=== PATIENT | female | born 1980 | race Caucasian/White ===

== ENCOUNTER 2017-07-13 19:27 | Emergency (ER) | payer MEDICAID ==
[~2017-07-13] VITALS: Ht 147.3 cm; Wt 88.5 kg
[2017-07-13 19:38] VITALS: Ht 147.3 cm; Wt 88.5 kg
[2017-07-13] MEDS ORDERED: HYDROmorphONE 1 MG/ML SYG IV STA (23:02)
[2017-07-13] MEDS ORDERED: SOD CHLORIDE 0.9% 1,000 ML IV STA (23:02)
[2017-07-13] MEDS ORDERED: ONDANSETRON 4 MG INJ IV STA (23:02)
[2017-07-13 23:22] LABS: BASOPHILS % 0.3 % (0.0-2.0); EOSINOPHILS # 0.1 10^3/ul (0.0-0.5); EOSINOPHILS % 1.9 % (0.0-7.0); HEMATOCRIT 37.1 % (37.0-47.0); HEMOGLOBIN 11.8 g/dl (12.0-16.0); LYMPHOCYTES # 2.4 10^3/ul (0.8-2.9); LYMPHOCYTES % 42.1 % (15.0-51.0); MEAN CORPUSCULAR HEMOGLOBIN 26.3 pg (29.0-33.0); MEAN CORPUSCULAR HGB CONC 31.8 g/dl (32.0-37.0); MEAN CORPUSCULAR VOLUME 82.6 fl (82.0-101.0); MEAN PLATELET VOLUME 11.3 fl (7.4-10.4); MONOCYTE # 0.4 10^3/ul (0.3-0.9); MONOCYTES % 7.5 % (0.0-11.0); NEUTROPHIL # 2.8 10^3/ul (1.6-7.5); NEUTROPHILS % 48.2 % (39.0-77.0); PLATELET COUNT 304 10^3/UL (140-415); RED BLOOD COUNT 4.49 10^6/ul (4.20-5.40); WHITE BLOOD COUNT 5.7 10^3/ul (4.8-10.8)
[2017-07-13 23:49] LABS: ALBUMIN 4.4 g/dl (3.3-4.9); ALBUMIN/GLOBULIN RATIO 1.04; BILIRUBIN,INDIRECT 0.2 mg/dl (0-1.1); BILIRUBIN,TOTAL 0.2 mg/dl (0.2-1.3); CALCIUM 9.9 mg/dl (8.4-10.2); CREATININE 0.71 mg/dl (0.44-1.00); POTASSIUM 4.1 mmol/L (3.5-5.1); TOTAL PROTEIN 8.6 g/dl (6.1-8.1)
[2017-07-14 00:01] LABS: ADD UMIC YES; UR ASCORBIC ACID NEGATIVE (NEGATIVE); UR BACTERIA FEW /HPF (NONE SEEN); UR BILIRUBIN (Dip) NEGATIVE (NEGATIVE); UR BLOOD (Dip) NEGATIVE (NEGATIVE); UR CLARITY CLOUDY (CLEAR); UR COLOR YELLOW (YELLOW); UR GLUCOSE (Dip) NEGATIVE (NEGATIVE); UR KETONES (Dip) NEGATIVE (NEGATIVE); UR LEUKOCYTE ESTERASE (Dip) 3+ Leu/ul (NEGATIVE); UR MUCUS FEW /HPF (NONE SEEN); UR NITRITE (Dip) NEGATIVE (NEGATIVE); UR RBC 5 /HPF (0-5); UR SPECIFIC GRAVITY (Dip) 1.026 (1.003-1.030); UR SQUAMOUS EPITHELIAL CELL MANY /HPF (FEW); UR TOTAL PROTEIN (Dip) NEGATIVE (NEGATIVE); UR UROBILINOGEN (Dip) 1+ mg/dL (NEGATIVE)
[2017-07-14] MEDS ORDERED: HYDROmorphONE 1 MG/ML SYG IV STA (00:10)
[2017-07-14] MEDS ORDERED: ONDANSETRON 4 MG INJ IV STA (00:10)
--- NOTE | 2017-07-14 00:29 | RADRPT ---
PROCEDURE: CT abdomen and pelvis without intravenous contrast. CLINICAL INDICATION: Pain. TECHNIQUE: CT of the abdomen/pelvis was performed utilizing axial images with reconstructions in s agittal and coronal planes. The administered radiation dose is CTDI 21.4 mGy, DLP 1261 mGy-cm. One o r more of the following dose reduction techniques were used: automated exposure control, adjustment of the mA and/or kV according to patient size and/or use of iterative reconstruction technique. COMPARISON: No pertinent prior examinations were submitted for comparison. FINDINGS: Visualized Chest: The visualized lung bases are clear. Abdomen: The liver, spleen, pancreas, and adrenal glands are unremarkable. The liver is diffusely decreased in attenuation, compatible with hepatic steatosis. Prior cholecystectomy is noted. The kidneys are without hydronephrosis. A 10 to 6-mm nonobstructive calculus is noted within the lo wer pole of the right kidney. There is no evidence of bowel obstruction. The appendix is normal. No intra-abdominal free air is seen. There is no evidence of intra-abdominal adenopathy or free fluid. There is a para sized ventral abd ominal hernia contains fat. Pelvis: There is no evidence of pelvic adenopathy. The uterus and ovaries are without enlargement. The uri nary bladder is unremarkable. There is no pelvic free fluid. Osseous structures: Unremarkable. IMPRESSION: No acute findings. Hepatic steatosis. Right nephrolithiasis. Small to moderate fat containing ventral abdominal hernia. RPTAT: HIKT .Carmelo Prince MD, Date Time Electronically viewed and signed by .Carmelo Prince MD, on 07/14/2017 00:29 .T/
--- NOTE | 2017-07-14 00:36 | ERD ---
ER Documentation Chief Complaint Date/Time DATE: 07/14/17 TIME: 00:33 Chief Complaint BILATERAL FLANK PAIN HISTORY OF STONES, +HEMATURIA/DYSURIA, 07/05 PX HPI This is a 36-year-old female with a history of kidney stones bilaterally. The patient states she is having bilateral flank pain with hematuria 1-2 days. She says this pain is exactly like her prior kidney stones. Pain is sharp nothing seems to make it worse or better. She has had no fever. Pain radiates from the bilateral flank to the mid abdomen bilateral. She has nausea but no vomiting. She does have some diarrhea she states.. Denies any fever no chest pain or shortness of breath ROS All systems reviewed and are negative except as per history of present illness. Allergies Allergies: Coded Allergies: No Known Allergy (Unverified Allergy, Unknown, 05/11/08) PMhx/Soc History of Surgery: Yes (, CHOLECYSTECTOMY) Anesthesia Reaction: No Hx Neurological Disorder: No Hx Respiratory Disorders: No Hx Cardiac Disorders: No Hx Psychiatric Problems: No Hx Miscellaneous Medical Probl: Yes (KIDNEY STONES) Hx Alcohol Use: No Hx Substance Use: No Hx Tobacco Use: No Smoking Status: Never smoker FmHx Family History: No coronary disease Physical Exam Vitals Vital Signs Date Time Temp Pulse Resp B/P Pulse Ox O2 Delivery O2 Flow Rate FiO2 07/13/17 23:00 99.0 98 20 126/79 99 Room Air 07/13/17 19:38 99.0 98 23 147/75 98 Physical Exam Const: Well-developed, well-nourished Head: Atraumatic, normocephalic Eyes: Normal Conjunctiva, PERRLA, EOMI, normal sclera, no nystagmus ENT: Normal External Ears, Nose and Mouth, moist mucus membranes. Neck: Full range of motion. No meningismus, no lymphadenopathy. Resp: Clear to auscultation bilaterally, no wheezing, rhonchi, rales Cardio: Regular rate and rhythm, no murmurs, S1 S2 present Abd: Soft, non tender x 4, non distended. Normal bowel sounds, no guarding or rebound, no pulsitile abdominal masses or bruits Skin: No petechiae or rashes, no ecchymosis , no maculopapular rash Back: [Bilateral flank tenderness right greater than left Ext: No cyanosis, or edema, FROM x 4, normal inspection, neurovascularly intact x 4 Neur: Awake and alert, STR 5/5 x 4, sensation intact x 4, no focal findings, cerebellum intact Psych: Normal Mood and Affect Result Diagram: 07/13/17229907/13/172299 Results 24 hrs Laboratory Tests Test 07/13/17 23:00 White Blood Count 5.710^3/ul Red Blood Count 4.4910^6/ul Hemoglobin 11.8g/dl Hematocrit 37.1% Mean Corpuscular Volume 82.6fl Mean Corpuscular Hemoglobin 26.3pg Mean Corpuscular Hemoglobin Concent 31.8g/dl Red Cell Distribution Width 15.0% Platelet Count 76950^3/UL Mean Platelet Volume 11.3fl Neutrophils % 48.2% Lymphocytes % 42.1% Monocytes % 7.5% Eosinophils % 1.9% Basophils % 0.3% Nucleated Red Blood Cells % 0.0/100WBC Neutrophils # 2.810^3/ul Lymphocytes # 2.410^3/ul Monocytes # 0.410^3/ul Eosinophils # 0.110^3/ul Basophils # 0.010^3/ul Nucleated Red Blood Cells # 0.010^3/ul Urine Color YELLOW Urine Clarity CLOUDY Urine pH 6.0 Urine Specific [place] 1.026 Urine Ketones NEGATIVEmg/dL Urine Nitrite NEGATIVEmg/dL Urine Bilirubin NEGATIVEmg/dL Urine Urobilinogen 1+mg/dL Urine Leukocyte Esterase 3+Danuta/ul Urine Microscopic RBC 5/HPF Urine Microscopic WBC 39/HPF Urine Squamous Epithelial Cells MANY/HPF Urine Bacteria FEW/HPF Urine Mucus FEW/HPF Urine Hemoglobin NEGATIVEmg/dL Urine Glucose NEGATIVEmg/dL Urine Total Protein NEGATIVEmg/dl Sodium Level 142mmol/L Potassium Level 4.1mmol/L Chloride Level 108mmol/L Carbon Dioxide Level 23mmol/L Anion Gap 15 Blood Urea Nitrogen 15mg/dl Creatinine 0.71mg/dl Glucose Level 79mg/dl Calcium Level 9.9mg/dl Total Bilirubin 0.2mg/dl Direct Bilirubin 0.00mg/dl Indirect Bilirubin 0.2mg/dl Aspartate Amino Transf (AST/SGOT) 38IU/L Alanine Aminotransferase (ALT/SGPT) 43IU/L Alkaline Phosphatase 75IU/L Total Protein 8.6g/dl Albumin 4.4g/dl Globulin 4.20g/dl Albumin/Globulin Ratio 1.04 Current Medications Medications (Trade) Dose Ordered Sig/Naomy Route PRN Reason Start Time Stop Time Status Last Admin Dose Admin Sodium Chloride (NS) 1,000 ml @ 1,000 mls/hr Q1H STAT IV 07/13/17 23:02 07/14/17 00:01 DC 07/13/17 23:19 Hydromorphone HCl (Dilaudid) 1 mg ONCE STAT IV 07/13/17 23:02 07/13/17 23:04 DC 07/13/17 23:19 Ondansetron HCl (Zofran Inj) 4 mg ONCE STAT IV 07/13/17 23:02 07/13/17 23:04 DC 07/13/17 23:19 Hydromorphone HCl (Dilaudid) 1 mg ONCE STAT IV 07/14/17 00:10 07/14/17 00:11 DC 07/14/17 00:15 Ondansetron HCl (Zofran Inj) 4 mg ONCE STAT IV 07/14/17 00:10 07/14/17 00:11 DC 07/14/17 00:15 Procedures/MDM PROCEDURE: CT abdomen and pelvis without intravenous contrast. CLINICAL INDICATION: Pain. TECHNIQUE: CT of the abdomen/pelvis was performed utilizing axial images with reconstructions in sagittal and coronal planes. The administered radiation dose is CTDI 21.4 mGy, DLP 1261 mGy-cm. One or more of the following dose reduction techniques were used: automated exposure control, adjustment of the mA and/or kV according to patient size and/or use of iterative reconstruction technique. COMPARISON: No pertinent prior examinations were submitted for comparison. FINDINGS: Visualized Chest: The visualized lung bases are clear. Abdomen: The liver, spleen, pancreas, and adrenal glands are unremarkable. The liver is diffusely decreased in attenuation, compatible with hepatic steatosis. Prior cholecystectomy is noted. The kidneys are without hydronephrosis. A 10 to 6-mm nonobstructive calculus is noted within the lower pole of the right kidney. There is no evidence of bowel obstruction. The appendix is normal. No intra- abdominal free air is seen. There is no evidence of intra-abdominal adenopathy or free fluid. There is a para sized ventral abdominal hernia contains fat. Pelvis: There is no evidence of pelvic adenopathy. The uterus and ovaries are without enlargement. The urinary bladder is unremarkable. There is no pelvic free fluid. Osseous structures: Unremarkable. IMPRESSION: No acute findings. Hepatic steatosis. Right nephrolithiasis. Small to moderate fat containing ventral abdominal hernia. RPTAT: HIKT .Carmelo Prince MD, MD Date Time Electronically viewed and signed by .Carmelo Prince MD, MD on 07/14/2017 00:29 .T/ CC: MAYANKBELINDA Charli DO No evidence of stones in the years but does have some stones in the right kidney. Blood work looks relatively unremarkable but she does have urinary tract infection. No signs of pyelonephritis. We will treat for kidney stones and UTI. Discharge home with Cipro, Flomax and [place] Departure Diagnosis: Primary Impression: Flank pain Additional Impression: UTI (urinary tract infection) Urinary tract infection type: acute cystitis Hematuria presence: with hematuria Qualified Code: N30.01 - Acute cystitis with hematuria Condition: Stable MARIRACHELBELINDA DO Jul 14, 2017 00:36
[2017-07-14] MEDS ORDERED: CIPR500T4 PO (00:37)
[2017-07-14] MEDS ORDERED: TAMS-14 PO (00:37)
[2017-07-14] MEDS ORDERED: HYDR-902 PO (00:37)
[2017-07-14 01:00] VITALS: BP 129/81; PULSE 80; RESP 20; TEMP 98.6
== END 2017-07-14 01:00 | disposition home or self-care (01) ==
LOC: E/R 19:27
DX: N30.01 Acute cystitis with hematuria (principal); R40.2252 Coma scale, best verbal response, oriented, at arrival to emergency department; R40.2142 Coma scale, eyes open, spontaneous, at arrival to emergency department; R40.2362 Coma scale, best motor response, obeys commands, at arrival to emergency department
CPT/HCPCS: 74176; 80053; 81001; 85025; J1170; J2405; J7030; 36415; 96374; 96375; 96376

== ENCOUNTER 2017-07-17 17:49 | Emergency (ER) | payer MEDICAID ==
[~2017-07-17] VITALS: Ht 160 cm; Wt 80.0 kg
[~2017-07-17 17:49] MED LIST: CIPR500T4 PO; HYDR-902 PO; TAMS-14 PO
[2017-07-17 17:51] VITALS: Ht 160 cm; Wt 80.0 kg
[2017-07-17] MEDS ORDERED: TAMS-14 PO (18:31)
[2017-07-17] MEDS ORDERED: KETOROLAC 30 MG INJ IV STA (18:31)
[2017-07-17] MEDS ORDERED: CIPR500T4 PO (18:31)
[2017-07-17] MEDS ORDERED: morphine 4 MG/ML VIAL IV STA (18:36)
[2017-07-17 18:54] LABS: ADD UMIC YES; UR ASCORBIC ACID 20 mg/dL (NEGATIVE); UR BILIRUBIN (Dip) NEGATIVE (NEGATIVE); UR BLOOD (Dip) NEGATIVE (NEGATIVE); UR CLARITY CLOUDY (CLEAR); UR COLOR AMBER (YELLOW); UR GLUCOSE (Dip) NEGATIVE (NEGATIVE); UR KETONES (Dip) NEGATIVE (NEGATIVE); UR LEUKOCYTE ESTERASE (Dip) 2+ Leu/ul (NEGATIVE); UR MUCUS MANY /HPF (NONE SEEN); UR NITRITE (Dip) NEGATIVE (NEGATIVE); UR RBC 10 /HPF (0-5); UR SQUAMOUS EPITHELIAL CELL MANY /HPF (FEW); UR TOTAL PROTEIN (Dip) 1+ mg/dl (NEGATIVE); UR UROBILINOGEN (Dip) 1+ mg/dL (NEGATIVE)
[2017-07-17] MEDS ORDERED: SOD CHLORIDE 0.9% 1,000 ML IV ONE (19:00)
[2017-07-17] MEDS ORDERED: HYDROmorphONE 1 MG/ML SYG IV STA (19:28)
[2017-07-17 19:37] VITALS: BP 116/74; PULSE 87; RESP 14
[2017-07-17] MEDS ORDERED: HYDR-906 PO (19:52)
--- NOTE | 2017-07-18 03:21 | ERD ---
ER Documentation Chief Complaint Chief Complaint BACK PAIN RAD ABD HPI Patient is a 36-year-old female with a history of nephrolithiasis who presents to the emergency department for concerns of worsening right flank pain. Patient was seen here on 07-14-17. At that time patient underwent a full workup. Patient had an CT scan which showed no acute findings, hepatic steatosis stenosis, right nephrolithiasis, small to moderate fat-containing ventral abdominal hernia. At that time no kidney stones were noted in the patient's ureters. Patient's urine was also positive for an acute infection. Patient states on discharge," my daughter ripped up all the paperwork and threw it away." Patient states included in this paperwork that her prescriptions. Patient denies taking any pain medication or antibiotics for her urinary tract infection given that she did not fill presrcriptions. Patient states this morning she had a fever however it has decreased with taking a shower. Patient denies any nausea or vomiting. Patient does admit to dysuria and frequency. Patient denies any obvious or gross hematuria. Patient states that she has an appointment with urologist at [facility] tomorrow. Patient denies any falls or trauma. Patient denies any chest pain, shortness of breath or LOC. ROS All systems reviewed and are negative except as per history of present illness. Medications Home Meds Active Scripts Hydrocodone/Acetaminophen ([place] 5-325 Tablet) 1 Each Tablet, 1 TAB PO Q6H Y for PAIN, #7 TAB Prov:CHILO NUNEZ PA-C 07/17/17 Ciprofloxacin Hcl* (Ciprofloxacin Hcl*) 500 Mg Tablet, 500 MG PO BID for 7 Days , TAB Prov:CHILO NUNEZ PA-C 07/17/17 Tamsulosin Hcl* (Flomax*) 0.4 Mg Cap.er.24h, 0.4 MG PO QPM, #7 CAP Prov:CHILO NUNEZ PA-C 07/17/17 Hydrocodone/Acetaminophen ([place] 10-325 Tablet) 1 Each Tablet, 1 TAB PO Q6H Y for PAIN, #20 TAB Prov:BELINDA TALLEY DO 07/14/17 Allergies Allergies: Coded Allergies: No Known Allergy (Unverified Allergy, Unknown, 05/11/08) PMhx/Soc History of Surgery: Yes (, CHOLECYSTECTOMY) Anesthesia Reaction: No Hx Neurological Disorder: No Hx Respiratory Disorders: No Hx Cardiac Disorders: No Hx Psychiatric Problems: No Hx Miscellaneous Medical Probl: Yes (KIDNEY STONES) Hx Alcohol Use: No Hx Substance Use: No Hx Tobacco Use: No Physical Exam Vitals Vital Signs Date Time Temp Pulse Resp B/P Pulse Ox O2 Delivery O2 Flow Rate FiO2 07/17/17 19:37 87 14 116/74 98 Room Air 07/17/17 17:51 98.1 83 20 139/79 99 Physical Exam GENERAL: Well-developed, well-nourished female. HEAD: Normocephalic, atraumatic. EYES: Pupils are equally reactive bilaterally. EOMs grossly intact. No conjunctival erythema. ENT: Moist mucous membranes. No uvula deviation. No kissing tonsils. NECK: Supple. No meningismus. Normal range of motion of the neck. LUNG: Clear to auscultation bilaterally. No rhonchi, wheezing, rales or coarse breath sounds. HEART: Regular rate and rhythm. No murmurs, rubs or gallops. ABDOMEN: No scars, ecchymosis or rashes noted. Soft, nontender, and nondistended. Positive bowel sounds in all four quadrants. No rebound tenderness , no guarding. (-) McBurney's point tenderness. R CVA tenderness. BACK: No midline tenderness. EXTREMITIES: Equal pulses bilaterally. No peripheral clubbing, cyanosis or edema. No unilateral leg swelling. NEUROLOGIC: Alert and oriented. Moving all four extremities without any difficulty. Normal speech. Steady gait. SKIN: Normal color. Warm and dry. No rashes or lesions. Results 24 hrs Laboratory Tests Test 07/17/17 16:40 Urine Color BARON Urine Clarity CLOUDY Urine pH 5.0 Urine Specific [place] 1.040 Urine Ketones NEGATIVEmg/dL Urine Nitrite NEGATIVEmg/dL Urine Bilirubin NEGATIVEmg/dL Urine Urobilinogen 1+mg/dL Urine Leukocyte Esterase 2+Danuta/ul Urine Microscopic RBC 10/HPF Urine Microscopic WBC 21/HPF Urine Squamous Epithelial Cells MANY/HPF Urine Mucus MANY/HPF Urine Hemoglobin NEGATIVEmg/dL Urine Glucose NEGATIVEmg/dL Urine Total Protein 1+mg/dl Current Medications Medications (Trade) Dose Ordered Sig/Naomy Route PRN Reason Start Time Stop Time Status Last Admin Dose Admin Sodium Chloride (NS) 1,000 ml @ 1,000 mls/hr Q1H ONCE IV 07/17/17 19:00 07/17/17 19:59 DC 07/17/17 18:43 Ketorolac Tromethamine (Toradol) 30 mg ONCE STAT IV 07/17/17 18:31 07/17/17 18:33 DC 07/17/17 18:44 Morphine Sulfate (morphine) 4 mg ONCE STAT IV 07/17/17 18:36 07/17/17 18:37 DC 07/17/17 18:44 Hydromorphone HCl (Dilaudid) 1 mg ONCE STAT IV 07/17/17 19:28 07/17/17 19:30 DC 07/17/17 19:35 Procedures/MDM ED COURSE: The patient was stable throughout ED course. I kept the patient and/or family informed of laboratory and diagnostic imaging results throughout the ED course. PROCEDURES: None. MEDICATIONS GIVEN: IV Fluids, Toradol 30 mg IV, morphine 4 mg IV, Dilaudid 1 mg IV Patient tolerated medication well with no adverse reactions. Patient reported improvement in pain. MEDICAL DECISION MAKING: This is a 36-year-old female with history of nephrolithiasis who presents to the emergency department for concerns of worsening right-sided flank pain. Patient was seen here 4 days ago however she states that her prescriptions which were provided to her at that time her accidentally thrown away. Patient is requesting her prescriptions be given to her again at this time. Vital signs were reviewed. Patient was afebrile. UA showed plus leukocyte esterase, microscopic WBCs of 21 and microscopic RBCs of 10. Urine was negative. I reviewed the patient's blood work and CT imaging from previous visit 4 days ago. Given that patient had a negative CT scan, I did not believe that additional imaging studies are indicated at this time. In addition patient had a normal BUN and creatinine at that time. My suspicion for acute renal injury in this patient is low. Urine culture was completed which does not show any growth as of today. I encouraged the patient to follow-up with her urologist as scheduled tomorrow. In addition, I did explain to the patient the importance of keeping track of all prescriptions. I provided the patient with duplicate prescriptions of Ciprofloxacin, Flomax and [place]. At this time, I only prescribed the patient 7 tabs of [place]. I advised the patient that she will not be prescribed any additional narcotic medications and she should keep track of all narcotic prescriptions given to her. Patient understands. Given these findings, the patient's presentation is most consistent with nephrolithiasis and UTI. I have a much lower clinical concern for urosepsis, appendicitis, diverticulitis, constipation, , ectopic , PID, ovarian torsion, or tubo-ovarian abscess. I discussed the case with my supervising physician Dr. Santana, who agreed with my workup and plan. PRESCRIPTIONS: [place], Ciprofloxacin, Flomax DISCHARGE: At this time, patient is stable for discharge and outpatient management. I have instructed the patient to follow-up with his/her primary care physician in 1-2 days. If symptoms persist, patient may need to see a specialist for further examinations and testing. I have instructed the patient to promptly return to the ER at any time for any new or worsening symptoms including increased increased pain, fever, nausea, vomiting, urinary changes or weakness. The patient and/or family expressed understanding of and agreement with this plan. All questions were answered. Home care instructions were provided. Disclaimer: Inadvertent spelling and grammatical errors are likely due to EHR/ dictation software use and do not reflect on the overall quality of patient care. Also, please note that the electronic time recorded on this note does not necessarily reflect the actual time of the patient encounter. Departure Diagnosis: Primary Impression: Nephrolithiasis Additional Impression: UTI (urinary tract infection) Urinary tract infection type: acute cystitis Hematuria presence: with hematuria Qualified Code: N30.01 - Acute cystitis with hematuria Condition: Stable Patient Instructions: Understanding Urinary Tract Infections (UTIs) Referrals: MELVINA BUITRAGO GALESH L. MD DULA,MADAY NICOLE,RICARDO TAM JENNIFER MD METZGER,DONELL BOYD MD= [facility] YOU HAVE RECEIVED A MEDICAL SCREENING EXAM AND THE RESULTS INDICATE THAT YOU DO NOT HAVE A CONDITION THAT REQUIRES URGENT TREATMENT IN THE EMERGENCY DEPARTMENT. FURTHER EVALUATION AND TREATMENT OF YOUR CONDITION CAN WAIT UNTIL YOU ARE SEEN IN YOUR DOCTORS OFFICE WITHIN THE NEXT 1-2 DAYS. IT IS YOUR RESPONSIBILITY TO MAKE AN APPOINTMENT FOR FOLOW-UP CARE. IF YOU HAVE A PRIMARY DOCTOR --you should call your primary doctor and schedule an appointment IF YOU DO NOT HAVE A PRIMARY DOCTOR YOU CAN CALL OUR PHYSICIAN REFERRAL HOTLINE AT IF YOU CAN NOT AFFORD TO SEE A PHYSICIAN YOU CAN CHOSE FROM THE FOLLOWING [facility] [address] [facility] [address] [facility] [address] [facility] [address] [facility] [phone] [facility]. [facility] [address] [facility]. [facility] YOU HAVE RECEIVED A MEDICAL SCREENING EXAM AND THE RESULTS INDICATE THAT YOU DO NOT HAVE A CONDITION THAT REQUIRES URGENT TREATMENT IN THE EMERGENCY DEPARTMENT. FURTHER EVALUATION AND TREATMENT OF YOUR CONDITION CAN WAIT UNTIL YOU ARE SEEN IN YOUR DOCTORS OFFICE WITHIN THE NEXT 1-2 DAYS. IT IS YOUR RESPONSIBILITY TO MAKE AN APPOINTMENT FOR FOLOW-UP CARE. IF YOU HAVE A PRIMARY DOCTOR --you should call your primary doctor and schedule and appointment IF YOU DO NOT HAVE A PRIMARY DOCTOR YOU CAN CALL OUR PHYSICIAN REFERRAL HOTLINE AT . IF YOU CAN NOT AFFORD TO SEE A PHYSICIAN YOU CAN CHOSE FROM THE FOLLOWING [facility]: [facility] [address] [place] [address] [facility] [address] [place] [address] [facility] [address] [place] [address] Additional Instructions: Call your primary care doctor TOMORROW for an appointment during the next 1-2 days.See the doctor sooner or return here if your condition worsens before your appointment time. Follow-up with the urologist tomorrow. CHILO NUNEZ PA-C Jul 18, 2017 03:19
--- NOTE | 2017-07-21 16:47 | EN ---
Date/Time of Note Date/Time of Note DATE: 07/21/17 TIME: 16:47 ER Progress Note RUN DATE: 07/20/17 [facility] PAGE 1 RUN TIME: [id number] [place] [address] Esteban Posada M.D. [employer] TORIN#: [id number] Name: TURNERNICOLA Age/Sex: 36/F Attend Dr: RIGO COTA Acct: [id number] MR# : [id number] : 1980 Location: FTE Admit: 07/17/17 Specimen: [id number] Status: Complete [place]: 07/17/17 Rcvd: 07/17 Source: ANGELICA BENITES Sp Descrip: Procedure Result Microbiology URINE CULTURE Final Organism 1 GARDNERELLA VAGINALIS COLONY COUNT >100,000 CFU/ml Organism 2 MIXED GRAM POSITIVE ORGANISMS COLONY COUNT 30,000 - 40,000 CFU/ml ................................................................................ ............ Flags: Critical Hi = *H Critical Lo = *L Microbiology Abnormal = * Abnormal Hi = H Abnormal Lo = L Blood Bank Abnormal = * Susceptability Flags: S = Sensitive R = Resistant I = Intermediate END OF REPORT RIGO LEONARDO MD Jul 21, 2017 16:47
[2017-07-21] MEDS ORDERED: METR500T PO (16:51)
== END 2017-07-17 20:03 | disposition home or self-care (01) ==
LOC: FTE 17:49
DX: N20.0 Calculus of kidney (principal); N30.01 Acute cystitis with hematuria
CPT/HCPCS: 81001; 87086; 96374; 96375; J1170; J1885; J2270; J7030; Z7502

== ENCOUNTER 2017-08-07 20:18 | Emergency (ER) | payer MEDICAID ==
[~2017-08-07] VITALS: Ht 147.3 cm; Wt 87.0 kg
[~2017-08-07 20:18] MED LIST changes: +HYDR-906 PO; +METR500T PO
[2017-08-07 20:23] VITALS: Ht 147.3 cm; Wt 87.0 kg
[2017-08-07] MEDS ORDERED: morphine 2 MG INJ IV STA (21:32)
[2017-08-07] MEDS ORDERED: ONDANSETRON 4 MG INJ IV STA ×2 (21:32→23:02)
[2017-08-07] MEDS ORDERED: morphine 4 MG/ML VIAL IV STA (21:36)
[2017-08-07] MEDS ORDERED: SOD CHLORIDE 0.9% 1,000 ML IV ONE (22:00)
[2017-08-07 22:37] LABS: BASOPHILS % 0.2 % (0.0-2.0); EOSINOPHILS # 0.1 10^3/ul (0.0-0.5); EOSINOPHILS % 1.9 % (0.0-7.0); HEMATOCRIT 35.6 % (37.0-47.0); HEMOGLOBIN 11.5 g/dl (12.0-16.0); LYMPHOCYTES # 2.5 10^3/ul (0.8-2.9); LYMPHOCYTES % 46.6 % (15.0-51.0); MEAN CORPUSCULAR HEMOGLOBIN 26.5 pg (29.0-33.0); MEAN CORPUSCULAR HGB CONC 32.3 g/dl (32.0-37.0); MEAN PLATELET VOLUME 11.1 fl (7.4-10.4); MONOCYTE # 0.3 10^3/ul (0.3-0.9); MONOCYTES % 6.4 % (0.0-11.0); NEUTROPHIL # 2.4 10^3/ul (1.6-7.5); NEUTROPHILS % 44.7 % (39.0-77.0); PLATELET COUNT 312 10^3/UL (140-415); RED BLOOD COUNT 4.34 10^6/ul (4.20-5.40); RED CELL DISTRIBUTION WIDTH 13.8 % (11.5-14.5); WHITE BLOOD COUNT 5.3 10^3/ul (4.8-10.8)
[2017-08-07 22:45] LABS: ADD UMIC YES; UR ASCORBIC ACID NEGATIVE (NEGATIVE); UR BACTERIA FEW /HPF (NONE SEEN); UR BILIRUBIN (Dip) NEGATIVE (NEGATIVE); UR BLOOD (Dip) NEGATIVE (NEGATIVE); UR CLARITY CLOUDY (CLEAR); UR COLOR YELLOW (YELLOW); UR GLUCOSE (Dip) NEGATIVE (NEGATIVE); UR KETONES (Dip) NEGATIVE (NEGATIVE); UR LEUKOCYTE ESTERASE (Dip) 3+ Leu/ul (NEGATIVE); UR NITRITE (Dip) NEGATIVE (NEGATIVE); UR RBC 2 /HPF (0-5); UR SPECIFIC GRAVITY (Dip) 1.011 (1.003-1.030); UR SQUAMOUS EPITHELIAL CELL FEW /HPF (FEW); UR TOTAL PROTEIN (Dip) NEGATIVE (NEGATIVE); UR UROBILINOGEN (Dip) NEGATIVE (NEGATIVE)
[2017-08-07] MEDS ORDERED: KETOROLAC 30 MG INJ IV STA (22:50)
--- NOTE | 2017-08-07 22:54 | ERD ---
ER Documentation Chief Complaint Chief Complaint AP WITH RT FLANK PAIN 10/10 WITH HX OF STONES, + DYSURIA, DENIES HEMATURIA HPI This is a 37-year-old female presents to the emergency department complaining of a sudden onset of right flank pain that awoke her from her sleep at 3 AM this morning, 19 hours prior to arrival. The patient states that the pain is 10 out of 10 in intensity with no alleviating or exacerbating factors. She denies any hematuria but is complaining of frequency urgency and dysuria. She has had no fevers no shaking or chills. The pain does not move to the right lower quadrant. She indicates she has had similar pain 2 months prior to arrival when she was diagnosed with nephrolithiasis. She did not require any surgical intervention such as lithotripsy or stent placement. She did not take any analgesic medication prior to arrival. Denies any nausea vomiting diarrhea or constipation. ROS All systems reviewed and are negative except as per history of present illness. Medications Home Meds Active Scripts Metronidazole* (Flagyl*) 500 Mg Tablet, 500 MG PO BID for 7 Days, TAB Prov:RIGO LEONARDO MD 07/21/17 Hydrocodone/Acetaminophen ([place] 5-325 Tablet) 1 Each Tablet, 1 TAB PO Q6H Y for PAIN, #7 TAB Prov:CHILO NUNEZ PA-C 07/17/17 Ciprofloxacin Hcl* (Ciprofloxacin Hcl*) 500 Mg Tablet, 500 MG PO BID for 7 Days , TAB Prov:CHILO NUNEZ PA-C 07/17/17 Tamsulosin Hcl* (Flomax*) 0.4 Mg Cap.er.24h, 0.4 MG PO QPM, #7 CAP Prov:CHILO NUNEZ PA-C 07/17/17 Hydrocodone/Acetaminophen ([place] 10-325 Tablet) 1 Each Tablet, 1 TAB PO Q6H Y for PAIN, #20 TAB Prov:BELINDA TALLEY DO 07/14/17 Allergies Allergies: Coded Allergies: No Known Allergy (Unverified Allergy, Unknown, 05/11/08) PMhx/Soc History of Surgery: Yes (, CHOLECYSTECTOMY) Anesthesia Reaction: No Hx Neurological Disorder: No Hx Respiratory Disorders: No Hx Cardiac Disorders: No Hx Psychiatric Problems: No Hx Miscellaneous Medical Probl: Yes (KIDNEY STONES) Hx Alcohol Use: No Hx Substance Use: No Hx Tobacco Use: No Smoking Status: Never smoker Physical Exam Vitals Vital Signs Date Time Temp Pulse Resp B/P Pulse Ox O2 Delivery O2 Flow Rate FiO2 08/07/17 20:23 99.1 89 20 153/78 99 Physical Exam Constitutional:Well-developed. Well-nourished. Patient appeared to be in a significant amount of discomfort secondary to pain HEENT:Normocephalic. Atraumatic.Pupils were equal round reactive to light. Moist mucous membranes.No tonsillar exudates. Neck: No nuchal rigidity. No lymphadenopathy. No posterior cervical spine tenderness or step-offs. Respiratory: Not using accessory muscles of respiration.Lungs were clear to auscultation bilaterally. No rhonchi. No rales. No wheezing. Cardiovascular: Regular rate regular rhythm.No murmurs. No rubs were appreciated.S1, S2 normal. Distal pulses are palpable 2+ bilaterally. GI: Abdomen was soft. Right CVA tenderness. Non Distended. No pulsatile abdominal masses or bruits. No rebound. No guarding. Bowel sounds were present and normal. Muscle skeletal: Full range of motion of both the upper and lower extremities bilaterally.Normal muscle tone.No assymetrical calf tenderness or swelling. Skin: No petechia, no purpura. No lesions on the palms or the soles of the feet. No maculopapular rash. NEURO: Patient was alert, awake, orientated x3.No facial droop. Gait observed and normal with no ataxia.Speech had regular rate and rhythm. No focal neurological deficits. Result Diagram: 08/07/174 08/07/17 2224 Results 24 hrs Laboratory Tests Test 08/07/17 22:24 White Blood Count 5.310^3/ul Red Blood Count 4.3410^6/ul Hemoglobin 11.5g/dl Hematocrit 35.6% Mean Corpuscular Volume 82.0fl Mean Corpuscular Hemoglobin 26.5pg Mean Corpuscular Hemoglobin Concent 32.3g/dl Red Cell Distribution Width 13.8% Platelet Count 94939^3/UL Mean Platelet Volume 11.1fl Neutrophils % 44.7% Lymphocytes % 46.6% Monocytes % 6.4% Eosinophils % 1.9% Basophils % 0.2% Nucleated Red Blood Cells % 0.0/100WBC Neutrophils # 2.410^3/ul Lymphocytes # 2.510^3/ul Monocytes # 0.310^3/ul Eosinophils # 0.110^3/ul Basophils # 0.010^3/ul Nucleated Red Blood Cells # 0.010^3/ul Urine Color YELLOW Urine Clarity CLOUDY Urine pH 8.0 Urine Specific [place] 1.011 Urine Ketones NEGATIVEmg/dL Urine Nitrite NEGATIVEmg/dL Urine Bilirubin NEGATIVEmg/dL Urine Urobilinogen NEGATIVEmg/dL Urine Leukocyte Esterase 3+Danuta/ul Urine Microscopic RBC 2/HPF Urine Microscopic WBC 13/HPF Urine Squamous Epithelial Cells FEW/HPF Urine Bacteria FEW/HPF Urine Hemoglobin NEGATIVEmg/dL Urine Glucose NEGATIVEmg/dL Urine Total Protein NEGATIVEmg/dl Sodium Level 142mmol/L Potassium Level 4.1mmol/L Chloride Level 104mmol/L Carbon Dioxide Level 25mmol/L Anion Gap 17 Blood Urea Nitrogen 11mg/dl Creatinine 0.73mg/dl Glucose Level 87mg/dl Calcium Level 9.7mg/dl Total Bilirubin 0.1mg/dl Direct Bilirubin 0.00mg/dl Indirect Bilirubin 0.1mg/dl Aspartate Amino Transf (AST/SGOT) 46IU/L Alanine Aminotransferase (ALT/SGPT) 56IU/L Alkaline Phosphatase 71IU/L Total Protein 8.2g/dl Albumin 4.5g/dl Globulin 3.70g/dl Albumin/Globulin Ratio 1.21 Lipase 101U/L Current Medications Medications (Trade) Dose Ordered Sig/Naomy Route PRN Reason Start Time Stop Time Status Last Admin Dose Admin Morphine Sulfate (morphine) 2 mg ONCE STAT IV 08/07/17 21:32 08/07/17 21:37 DC Ondansetron HCl (Zofran Inj) 4 mg ONCE STAT IV 08/07/17 21:32 08/07/17 22:04 DC 08/07/17 22:21 Morphine Sulfate 4 mg 4 mg ONCE STAT IV 08/07/17 21:36 08/07/17 22:04 DC 08/07/17 22:22 Sodium Chloride (NS) 1,000 ml @ 1,000 mls/hr Q1H ONCE IV 08/07/17 22:00 08/07/17 22:59 DC 08/07/17 22:22 Ketorolac Tromethamine 30 mg 30 mg ONCE STAT IV 08/07/17 22:50 08/07/17 22:53 DC Ciprofloxacin/ Dextrose (Cipro Ivpb) 200 ml @ 200 mls/hr ONCE ONCE IVPB 08/07/17 23:00 08/07/17 23:59 Procedures/MDM The patient presented to the emergency department with back pain. My differential diagnosis included but was not limited to spinal origins of the pain such as fracture, osteomyelitis, epidural abscess, neoplasm, spondylolishtesis, discogenic, cauda equina syndrome or musculoligamentous. Nonspinal causes such as AAA, upper UTI, renal colic, aortic dissection, abdominal neoplasm were also considered as an etiology into their pain. IV access was established by nursing staff the patient was immediately given IV morphine Toradol Zofran analgesia control. CT scan ordered reviewed by the radiologist did indicate that the patient had a nonobstructive nephrolithiasis that was a result of the patient's pain. She was given IV ciprofloxacin to prevent secondary bacterial infection as well as Flomax. The patient was discharged home in fair condition. They were instructed to return to the emergency department at any time if there was any worsening of their condition. The patient stated they would follow up with their PCP in the next 24-48 hours to initiate a suitable medication regimen under the care of their PCP as well as to allow their PCP to monitor any drug reactions. The patient was discharged home with prescriptions after they gave informed consent to the new medication. They were also fully informed by myself on the adverse effects and adverse drug interactions in order to provide adequate safeguards to prevent possible adverse reactions to medications. She was instructed to follow-up with a urologist on an outpatient basis. Departure Diagnosis: Primary Impression: Nephrolithiasis Additional Impression: Urinary tract infection Urinary tract infection type: acute cystitis Hematuria presence: without hematuria Qualified Code: N30.00 - Acute cystitis without hematuria Condition: Fair LISS GUSTAFSON Aug 07, 2017 22:54
[2017-08-07 22:56] LABS: ALBUMIN 4.5 g/dl (3.3-4.9); ALBUMIN/GLOBULIN RATIO 1.21; BILIRUBIN,INDIRECT 0.1 mg/dl (0-1.1); BILIRUBIN,TOTAL 0.1 mg/dl (0.2-1.3); CALCIUM 9.7 mg/dl (8.4-10.2); CREATININE 0.73 mg/dl (0.44-1.00); POTASSIUM 4.1 mmol/L (3.5-5.1); TOTAL PROTEIN 8.2 g/dl (6.1-8.1)
--- NOTE | 2017-08-07 22:59 | RADRPT ---
PROCEDURE: CT abdomen and pelvis without intravenous contrast. CLINICAL INDICATION: Pain. TECHNIQUE: CT of the abdomen/pelvis was performed utilizing axial images with reconstructions in s agittal and coronal planes. The administered radiation dose is CTDI 20 mGy, DLP 1161 mGy-cm. One or more of the following dose reduction techniques were used: automated exposure control, adjustment of the mA and/or kV according to patient size and/or use of iterative reconstruction technique. DICOM images are available. COMPARISON: 07/13/2017 FINDINGS: Visualized Chest: The visualized lung bases are clear. Abdomen: The liver, spleen, pancreas, and adrenal glands are unremarkable. Prior cholecystectomy is noted. The kidneys are without hydronephrosis. No a small nonobstructive calculus is noted within the inte rpolar right kidney. There is no evidence of bowel obstruction. The appendix is normal. No intra-abdominal free air is seen. There is a moderate-sized omentum containing ventral abdominal hernia. There is no evidence of intra-abdominal adenopathy or free fluid. Pelvis: There is no evidence of pelvic adenopathy. The uterus and ovaries are without enlargement. The uri nary bladder is unremarkable. There is no pelvic free fluid. Osseous structures: Unremarkable. IMPRESSION: No acute findings. Right nephrolithiasis. RPTAT: HIKT .Carmelo Prince MD, Date Time Electronically viewed and signed by .Carmelo Prince MD, on 08/07/2017 22:58 .T/
[2017-08-07] MEDS ORDERED: CIPROFLOXACIN 400MG/D5W 200 ML IVPB ONE (23:00)
[2017-08-07] MEDS ORDERED: HYDROmorphONE 1 MG/ML SYG IV STA (23:02)
[2017-08-07] MEDS ORDERED: CIPR500T4 PO (23:06)
[2017-08-07] MEDS ORDERED: IBUP800T25 PO (23:06)
[2017-08-07] MEDS ORDERED: HYDR-906 PO (23:06)
[2017-08-07] MEDS ORDERED: TAMSULOSIN (SR) 0.4 MG CAP PO ONE (23:30)
[2017-08-08 00:17] VITALS: BP 127/80; PULSE 78; RESP 17; TEMP 98.8
== END 2017-08-08 00:52 | disposition home or self-care (01) ==
LOC: E/R 20:18
DX: N20.0 Calculus of kidney (principal); N30.00 Acute cystitis without hematuria
CPT/HCPCS: 36415; 74176; 80053; 81001; 83690; 85025; 87086; 96374; 96375; 96376; J0744; J1170; J1885; J2270; J2405; J7030; Z7502; Z7610

== ENCOUNTER 2017-08-21 18:58 | Emergency (ER) | payer MEDICAID ==
[~2017-08-21] VITALS: Ht 167.6 cm; Wt 83.2 kg
[~2017-08-21 18:58] MED LIST changes: +IBUP800T25 PO
[2017-08-21 19:03] VITALS: Ht 167.6 cm; Wt 83.2 kg
[2017-08-21] MEDS ORDERED: morphine 4 MG/ML VIAL IV STA (19:23)
[2017-08-21] MEDS ORDERED: SOD CHLORIDE 0.9% 1,000 ML IV STA (19:23)
[2017-08-21] MEDS ORDERED: ONDANSETRON 4 MG INJ IV STA (19:23)
[2017-08-21] MEDS ORDERED: LACTATED RINGER'S 1,000 ML IV ONE (19:30)
[2017-08-21 19:34] LABS: URINE BLOOD (Dip) POC 2+ (NEGATIVE)
--- NOTE | 2017-08-21 19:38 | ERD ---
ER Documentation Chief Complaint Chief Complaint lower abd pain radaiting to back x 2 days, vomiting, diarrhea HPI 37-year-old female presents here in emergency department for complaints of right lower quadrant abdominal pain for 2 days radiating to the right back area patient describes the pain as sharp pain, 6/10 scale, not better or worse with anything. Patient also has been vomiting. Patient also has episodes of diarrhea. Patient does not have any blood in the stool or black stool. Patient does not have any blood in vomit. Patient does not have any sick contacts. She did not take any medications to help with symptoms. ROS All systems reviewed and are negative except as per history of present illness. Medications Home Meds Active Scripts Tamsulosin Hcl* (Flomax*) 0.4 Mg Cap.er.24h, 0.4 MG PO QPM, #30 CAP Prov:DAMASO GUAN NP 08/21/17 Phenazopyridine Hcl* (Pyridium*) 200 Mg Tab, 200 MG PO TID Y for URINARY PAIN, # 6 TAB Prov:DAMASO GUAN NP 08/21/17 Dicyclomine Hcl* (Bentyl*) 10 Mg Capsule, 10 MG PO QID, #20 CAP Prov:DAMASO GUAN NP 08/21/17 Ondansetron (Ondansetron Odt) 4 Mg Tab.rapdis, 4 MG PO Q6H Y for NAUSEA AND/OR VOMITING, #20 TAB Prov:DAMASO GUAN NP 08/21/17 Hydrocodone/Acetaminophen ([place] 5-325 Tablet) 1 Each Tablet, 1 TAB PO Q6H Y for PAIN, #20 TAB Prov:DAMASO GUAN NP 08/21/17 Ibuprofen* (Ibuprofen*) 800 Mg Tablet, 800 MG PO Q8, #20 TAB Prov:LISS GUTSAFSON 08/07/17 Hydrocodone/Acetaminophen ([place] 5-325 Tablet) 1 Each Tablet, 1 EACH PO Q6, #20 TAB Prov:LISS GUSTAFSON 08/07/17 Ciprofloxacin Hcl* (Ciprofloxacin Hcl*) 500 Mg Tablet, 500 MG PO BID for 7 Days , TAB Prov:LISS GUSTAFSON 08/07/17 Metronidazole* (Flagyl*) 500 Mg Tablet, 500 MG PO BID for 7 Days, TAB Prov:RIGO LEONARDO MD 07/21/17 Hydrocodone/Acetaminophen ([place] 5-325 Tablet) 1 Each Tablet, 1 TAB PO Q6H Y for PAIN, #7 TAB Prov:MAYRA,CHILO WISE 07/17/17 Ciprofloxacin Hcl* (Ciprofloxacin Hcl*) 500 Mg Tablet, 500 MG PO BID for 7 Days , TAB Prov:CHILO NUNEZ PA-C 07/17/17 Tamsulosin Hcl* (Flomax*) 0.4 Mg Cap.er.24h, 0.4 MG PO QPM, #7 CAP Prov:MAYRACHILO PA-C 07/17/17 Hydrocodone/Acetaminophen ([place] 10-325 Tablet) 1 Each Tablet, 1 TAB PO Q6H Y for PAIN, #20 TAB Prov:BELINDA TALLEY DO 07/14/17 Allergies Allergies: Coded Allergies: No Known Allergy (Unverified Allergy, Unknown, 05/11/08) PMhx/Soc History of Surgery: Yes (, CHOLECYSTECTOMY) Anesthesia Reaction: No Hx Neurological Disorder: No Hx Respiratory Disorders: No Hx Cardiac Disorders: No Hx Psychiatric Problems: No Hx Miscellaneous Medical Probl: Yes (KIDNEY STONES) Hx Alcohol Use: No Hx Substance Use: No Hx Tobacco Use: No Smoking Status: Never smoker FmHx Family History: No coronary disease, No diabetes, No other Physical Exam Vitals Vital Signs Date Time Temp Pulse Resp B/P Pulse Ox O2 Delivery O2 Flow Rate FiO2 08/21/17 19:03 97.8 96 20 130/86 99 Physical Exam GENERAL: The patient is well developed and appropriate for usual state of health, in no apparent distress. CHEST: Clear to auscultation bilaterally. There are no rales, wheezes or rhonchi. HEART: Regular rate and rhythm. No murmurs, clicks, rubs or gallops. No S3 or S4. ABDOMEN: Soft, nontender and nondistended. Hyperactive bowel sounds. No rebound or guarding. No gross peritonitis. No gross organomegaly or masses. No Dunn sign or McBurney point tenderness. BACK: No midline or flank tenderness. EXTREMITIES: Equal pulses bilaterally. There is no peripheral clubbing, cyanosis or edema. No focal swelling or erythema. Full range of motion. Grossly neurovascularly intact. NEURO: Alert and oriented. Cranial nerves 2-12 intact. Motor strength in all 4 extremities with 5/5 strength. Sensation grossly intact. Normal speech and gait. SKIN: There is no apparent rash or petechia. The skin is warm and dry. HEMATOLOGIC AND LYMPHATIC: There is no evidence of excessive bruising or lymphedema. No gross cervical, axillary, or inguinal lymphadenopathy. Result Diagram: 08/21/17192508/21/171925 Results 24 hrs Laboratory Tests Test 08/21/17 19:26 08/21/17 19:32 08/21/17 20:10 08/21/17 20:55 White Blood Count 4.910^3/ul Red Blood Count 4.4110^6/ul Hemoglobin 11.5g/dl Hematocrit 35.8% Mean Corpuscular Volume 81.2fl Mean Corpuscular Hemoglobin 26.1pg Mean Corpuscular Hemoglobin Concent 32.1g/dl Red Cell Distribution Width 14.3% Platelet Count 56965^3/UL Mean Platelet Volume 11.0fl Neutrophils % 50.2% Lymphocytes % 41.1% Monocytes % 7.7% Eosinophils % 0.6% Basophils % 0.4% Nucleated Red Blood Cells % 0.0/100WBC Neutrophils # 2.510^3/ul Lymphocytes # 2.010^3/ul Monocytes # 0.410^3/ul Eosinophils # 0.010^3/ul Basophils # 0.010^3/ul Nucleated Red Blood Cells # 0.010^3/ul Sodium Level 145mmol/L Potassium Level 3.8mmol/L Chloride Level 109mmol/L Carbon Dioxide Level 20mmol/L Anion Gap 20 Blood Urea Nitrogen 9mg/dl Creatinine 0.68mg/dl Glucose Level 119mg/dl Calcium Level 10.1mg/dl Total Bilirubin 0.3mg/dl Direct Bilirubin 0.00mg/dl Indirect Bilirubin 0.3mg/dl Aspartate Amino Transf (AST/SGOT) 26IU/L Alanine Aminotransferase (ALT/SGPT) 34IU/L Alkaline Phosphatase 61IU/L Total Protein 8.4g/dl Albumin 4.8g/dl Globulin 3.60g/dl Albumin/Globulin Ratio 1.33 Lipase 92U/L Bedside Urine pH (LAB) 5.5 6.0 Bedside Urine Protein (LAB) 1+ 1+ Bedside Urine Glucose (UA) Negative Negative Bedside Urine Ketones (LAB) Negative Trace Bedside Urine Blood 2+ 3+ Bedside Urine Nitrite (LAB) Negative Negative Bedside Urine Leukocyte Esterase (L Negative Negative Urine Color YELLOW Urine Clarity SLIGHTLY CLOUDY Urine pH 5.0 Urine Specific [place] 1.027 Urine Ketones NEGATIVEmg/dL Urine Nitrite NEGATIVEmg/dL Urine Bilirubin NEGATIVEmg/dL Urine Urobilinogen NEGATIVEmg/dL Urine Leukocyte Esterase NEGATIVELeu/ul Urine Microscopic RBC 0/HPF Urine Microscopic WBC 3/HPF Urine Squamous Epithelial Cells FEW/HPF Urine Mucus MANY/HPF Urine Hemoglobin 3+mg/dL Urine Glucose NEGATIVEmg/dL Urine Total Protein 1+mg/dl Current Medications Medications (Trade) Dose Ordered Sig/Naomy Route PRN Reason Start Time Stop Time Status Last Admin Dose Admin Sodium Chloride (NS) 1,000 ml @ 1,000 mls/hr Q1H STAT IV 08/21/17 19:23 08/21/17 19:31 DC Morphine Sulfate (morphine) 4 mg ONCE STAT IV 08/21/17 19:23 08/21/17 19:24 DC 08/21/17 19:30 Ondansetron HCl 4 mg 4 mg ONCE STAT IV 08/21/17 19:23 08/21/17 19:24 DC 08/21/17 19:30 Lactated Ringer's (Lr) 1,000 ml @ 1,000 mls/hr Q1H ONCE IV 08/21/17 19:30 08/21/17 20:29 DC 08/21/17 19:32 Ketorolac Tromethamine (Toradol) 30 mg ONCE STAT IV 08/21/17 20:32 08/21/17 20:33 DC 08/21/17 20:36 Dicyclomine HCl (Bentyl) 20 mg ONCE ONCE PO 08/21/17 21:00 08/21/17 21:01 DC 08/21/17 21:01 Hydromorphone HCl (Dilaudid) 1 mg ONCE STAT IV 08/21/17 20:58 08/21/17 20:59 DC 08/21/17 21:01 Patient was given medication for pain here in emergency department, after treatment, patient verbalized feeling much better. Patient's pain is improved. Patient was given Zofran here in the emergency department. After treatment, patient was able to tolerate po fluids here in the emergency department without any vomiting. There is no signs and symptoms of dehydration. Normal saline IV bolus was given here in emergency department for rehydration, patient tolerated IV fluids. PROCEDURE: CT abdomen and pelvis without IV contrast. CLINICAL INDICATION: Abdomen pain. TECHNIQUE: CT scan of the abdomen and pelvis was performed on a [address] scanner. The patient is scanned without IV contrast. Coronal and sagittal reformatted images were obtained from the axial source images. Images were reviewed on a high-resolution PACS workstation. DICOM images are available. Total radiation dose: Total CTDIvol: 16.9 mGy. Total DLP: 1025 mGy-cm. One or more of the following dose reduction techniques were used: automated exposure control, adjustment of the mA and/or kV according to patient size, or use of iterative reconstruction technique. COMPARISON: None available. FINDINGS: CT abdomen: The lung bases are clear. The heart is not enlarged without pericardial thickening or effusion. The liver is normal in size and density without focal hepatic mass or biliary dilatation. The spleen is normal in size. The stomach is partially collapsed but is grossly unremarkable. The pancreas as visualized is normal. There is status post cholecystectomy and there is no evidence of biliary dilatation. The adrenal glands are symmetrical and normal. There is 0.4 cm nonobstructing stone in the lower pole clarissa of the right kidney. The kidneys are symmetrically normal bilaterally. No renal obstructive uropathy or mass lesion is seen.. The aorta is normal in caliber. There is no retroperitoneal lymphadenopathy. The nori hepatis region is clear. There is scattered diverticulosis of the left colon without evidence of diverticulitis. The bowel and mesentery, as visualized, are equally unremarkable. CT pelvis: There is dehiscence of the left anterior abdomen wall of the pelvis. The appendix is normal in the right lower quadrant. The small bowel loops situated within the pelvis are unremarkable. The pelvic organs are normal. The pelvic sidewalls and inguinal regions are clear. No mass, lymphadenopathy is seen. No acute inflammation seen. The urinary bladder is normal. The surrounding osseous structures are unremarkable. No osteolytic or osteoblastic lesion is detected. IMPRESSION: 1. 0.4 cm nonobstructing stone in the lower pole clarissa of the right kidney. 2. Status post cholecystectomy. 3. Dehiscence of the left anterior abdomen wall of the pelvis. 4. Scattered diverticulosis of the left colon without evidence of diverticulitis. RPTAT: GG .Win Eric MD, Date Time Electronically viewed and signed by .Win Eric MD, MD on 08/21/2017 20:49 .Y/ CC: DAMASO GUAN [employer] Procedures/MDM Medical Decision Making: Symptoms of right flank right lower quadrant abdominal pain plus positive blood in the urine most likely is consistent with a renal colic, most likely patient passed a stone, history of kidney stone on the right side, patient also has vomiting and diarrhea, most likely consistent with viral illness. No appendicitis noted. There is a abdominal wall dehiscence noted in the left side of the abdomen, upon evaluation of the patient, no abdominal tenderness, no history of any any surgical procedure done on the affected are. Tthere is low suspicion for abdominal emergencies at this time. Patients abdominal exam is normal at this time. Patients radiology exam does not show any abdominal emergencies at this time. There is low suspicion for appendicitis, cholecystitis, abdominal aortic aneurysms or peritonitis at this time. There is low suspicion for sepsis. Patient appears well and is hemodynamically stable. I discussed this case with my attending physician, Dr. Santana, reviewed patient' s CT scan report with me, she agrees with the plan at this time. Disposition: Home. Condition: Stable Prescription [place], Tamsulosin, Pyridium, Zofran, BEntyl Instructions: Patient is advised to take medications as prescribed. Patient is advised to rest, increase fluid intake and do brat diet for next 1-2 days and progress as tolerated. Patient is advised that if symptoms are worse, severe abdominal pain, uncontrolled vomiting, high fever, severe flank pain, worst signs and symptoms, to return to the emergency department immediately. Otherwise, patient can follow up with primary care doctor in 5-7 days. Disclaimer: Inadvertent spelling and grammatical errors are likely due to EHR/ dictation software use and do not reflect on the overall quality of patient care. Also, please note that the electronic time recorded on this note does not necessarily reflect the actual time of the patient encounter. Departure Diagnosis: Primary Impression: Renal colic on right side Additional Impression: Viral gastroenteritis Condition: Stable Patient Instructions: Gastroenteritis, Viral (6Y-Adult), Kidney Stone W/ Colic Additional Instructions: Patient is advised to take medications as prescribed. Patient is advised to rest, increase fluid intake and do brat diet for next 1-2 days and progress as tolerated. Patient is advised that if symptoms are worse, severe abdominal pain , uncontrolled vomiting, high fever, severe flank pain, worst signs and symptoms , to return to the emergency department immediately. Otherwise, patient can follow up with primary care doctor in 5-7 days. DAMASO GUAN NP Aug 21, 2017 19:38
[2017-08-21 19:41] LABS: BASOPHILS % 0.4 % (0.0-2.0); EOSINOPHILS % 0.6 % (0.0-7.0); HEMATOCRIT 35.8 % (37.0-47.0); HEMOGLOBIN 11.5 g/dl (12.0-16.0); LYMPHOCYTES % 41.1 % (15.0-51.0); MEAN CORPUSCULAR HEMOGLOBIN 26.1 pg (29.0-33.0); MEAN CORPUSCULAR HGB CONC 32.1 g/dl (32.0-37.0); MEAN CORPUSCULAR VOLUME 81.2 fl (82.0-101.0); MONOCYTE # 0.4 10^3/ul (0.3-0.9); MONOCYTES % 7.7 % (0.0-11.0); NEUTROPHIL # 2.5 10^3/ul (1.6-7.5); NEUTROPHILS % 50.2 % (39.0-77.0); PLATELET COUNT 385 10^3/UL (140-415); RED BLOOD COUNT 4.41 10^6/ul (4.20-5.40); RED CELL DISTRIBUTION WIDTH 14.3 % (11.5-14.5); WHITE BLOOD COUNT 4.9 10^3/ul (4.8-10.8)
[2017-08-21 20:03] LABS: ALBUMIN 4.8 g/dl (3.3-4.9); ALBUMIN/GLOBULIN RATIO 1.33; BILIRUBIN,INDIRECT 0.3 mg/dl (0-1.1); BILIRUBIN,TOTAL 0.3 mg/dl (0.2-1.3); CALCIUM 10.1 mg/dl (8.4-10.2); CREATININE 0.68 mg/dl (0.44-1.00); POTASSIUM 3.8 mmol/L (3.5-5.1); TOTAL PROTEIN 8.4 g/dl (6.1-8.1)
[2017-08-21 20:10] LABS: URINE BLOOD (Dip) POC 3+ (NEGATIVE)
[2017-08-21] MEDS ORDERED: KETOROLAC 30 MG INJ IV STA (20:32)
--- NOTE | 2017-08-21 20:49 | RADRPT ---
PROCEDURE: CT abdomen and pelvis without IV contrast. CLINICAL INDICATION: Abdomen pain. TECHNIQUE: CT scan of the abdomen and pelvis was performed on a [address] scanner. The patient is scanned without IV contrast. Coronal and sagittal reformatted images were obtained from the axia l source images. Images were reviewed on a high-resolution PACS workstation. DICOM images are avai lable. Total radiation dose: Total CTDIvol: 16.9 mGy. Total DLP: 1025 mGy-cm. One or more of the following dose reduction techniques were used: automated exposure control, adjustment of the mA and/or kV acc ording to patient size, or use of iterative reconstruction technique. COMPARISON: None available. FINDINGS: CT abdomen: The lung bases are clear. The heart is not enlarged without pericardial thickening or effusion. The liver is normal in size and density without focal hepatic mass or biliary dilatation. The splee n is normal in size. The stomach is partially collapsed but is grossly unremarkable. The pancreas as visualized is normal. There is status post cholecystectomy and there is no evidence of biliary dilatation. The adrenal glands are symmetrical and normal. There is 0.4 cm nonobstructing stone in the lower po le clarissa of the right kidney. The kidneys are symmetrically normal bilaterally. No renal obstructiv e uropathy or mass lesion is seen.. The aorta is normal in caliber. There is no retroperitoneal lymphadenopathy. The nori hepatis reg ion is clear. There is scattered diverticulosis of the left colon without evidence of diverticulitis . The bowel and mesentery, as visualized, are equally unremarkable. CT pelvis: There is dehiscence of the left anterior abdomen wall of the pelvis. The appendix is normal in the right lower quadrant. The small bowel loops situated within the pelvis are unremarkable. The pelvi c organs are normal. The pelvic sidewalls and inguinal regions are clear. No mass, lymphadenopathy is seen. No acute inflammation seen. The urinary bladder is normal. The surrounding osseous structures are unremarkable. No osteolytic or osteoblastic lesion is detect ed. IMPRESSION: 1. 0.4 cm nonobstructing stone in the lower pole clarissa of the right kidney. 2. Status post cholecystectomy. 3. Dehiscence of the left anterior abdomen wall of the pelvis. 4. Scattered diverticulosis of the left colon without evidence of diverticulitis. RPTAT: GG .Win Eric MD, MD Date Time Electronically viewed and signed by .Win Eric MD, MD on 08/21/2017 20:49 .Y/
[2017-08-21] MEDS ORDERED: HYDROmorphONE 1 MG/ML SYG IV STA (20:58)
[2017-08-21] MEDS ORDERED: DICYCLOMINE 10 MG CAP PO ONE (21:00)
[2017-08-21] MEDS ORDERED: TAMS-14 PO (21:06)
[2017-08-21] MEDS ORDERED: DICY10CA60 PO (21:06)
[2017-08-21] MEDS ORDERED: PHEN-538 PO (21:06)
[2017-08-21] MEDS ORDERED: ONDA4TAB14 PO (21:06)
[2017-08-21] MEDS ORDERED: HYDR-906 PO (21:06)
[2017-08-21 21:15] LABS: ADD UMIC YES; UR ASCORBIC ACID 40 mg/dL (NEGATIVE); UR BILIRUBIN (Dip) NEGATIVE (NEGATIVE); UR BLOOD (Dip) 3+ mg/dL (NEGATIVE); UR CLARITY SLIGHTLY CLOUDY (CLEAR); UR COLOR YELLOW (YELLOW); UR GLUCOSE (Dip) NEGATIVE (NEGATIVE); UR KETONES (Dip) NEGATIVE (NEGATIVE); UR LEUKOCYTE ESTERASE (Dip) NEGATIVE Leu/ul (NEGATIVE); UR MUCUS MANY /HPF (NONE SEEN); UR NITRITE (Dip) NEGATIVE (NEGATIVE); UR RBC 0 /HPF (0-5); UR SPECIFIC GRAVITY (Dip) 1.027 (1.003-1.030); UR SQUAMOUS EPITHELIAL CELL FEW /HPF (FEW); UR TOTAL PROTEIN (Dip) 1+ mg/dl (NEGATIVE); UR UROBILINOGEN (Dip) NEGATIVE (NEGATIVE)
[2017-08-21 21:43] VITALS: BP 115/68; PULSE 72; RESP 18; TEMP 98.6
== END 2017-08-21 21:46 | disposition home or self-care (01) ==
LOC: FTE 18:58
DX: N23 Unspecified renal colic (principal); A08.4 Viral intestinal infection, unspecified
CPT/HCPCS: 36415; 74176; 80053; 81001; 83690; 85025; 96374; 96375; J1170; J1885; J2270; J2405; J7120; Z7502; Z7610; 81003; J7030

== ENCOUNTER 2017-09-03 20:30 | Emergency (ER) | payer MEDICAID ==
[~2017-09-03] VITALS: Ht 167.6 cm; Wt 85.1 kg
[~2017-09-03 20:30] MED LIST changes: +DICY10CA60 PO; +ONDA4TAB14 PO; +PHEN-538 PO
[2017-09-03 20:32] VITALS: Ht 167.6 cm; Wt 85.1 kg
[2017-09-03] MEDS ORDERED: SOD CHLORIDE 0.9% 1,000 ML IV STA (21:55)
[2017-09-03] MEDS ORDERED: morphine 4 MG/ML VIAL IV STA (21:55)
[2017-09-03] MEDS ORDERED: ONDANSETRON 4 MG INJ IV STA (21:55)
[2017-09-03 22:44] LABS: BASOPHILS % 0.2 % (0.0-2.0); EOSINOPHILS % 0.2 % (0.0-7.0); HEMATOCRIT 34.1 % (37.0-47.0); HEMOGLOBIN 11.1 g/dl (12.0-16.0); LYMPHOCYTES # 1.4 10^3/ul (0.8-2.9); LYMPHOCYTES % 25.6 % (15.0-51.0); MEAN CORPUSCULAR HEMOGLOBIN 26.4 pg (29.0-33.0); MEAN CORPUSCULAR HGB CONC 32.6 g/dl (32.0-37.0); MEAN PLATELET VOLUME 11.2 fl (7.4-10.4); MONOCYTE # 0.3 10^3/ul (0.3-0.9); MONOCYTES % 5.1 % (0.0-11.0); NEUTROPHIL # 3.8 10^3/ul (1.6-7.5); NEUTROPHILS % 68.7 % (39.0-77.0); PLATELET COUNT 262 10^3/UL (140-415); RED BLOOD COUNT 4.21 10^6/ul (4.20-5.40); RED CELL DISTRIBUTION WIDTH 13.4 % (11.5-14.5); WHITE BLOOD COUNT 5.5 10^3/ul (4.8-10.8)
[2017-09-03 22:46] LABS: ADD UMIC NO; UR ASCORBIC ACID NEGATIVE (NEGATIVE); UR BILIRUBIN (Dip) NEGATIVE (NEGATIVE); UR BLOOD (Dip) NEGATIVE (NEGATIVE); UR CLARITY CLEAR (CLEAR); UR COLOR YELLOW (YELLOW); UR GLUCOSE (Dip) NEGATIVE (NEGATIVE); UR KETONES (Dip) 1+ mg/dL (NEGATIVE); UR LEUKOCYTE ESTERASE (Dip) NEGATIVE Leu/ul (NEGATIVE); UR NITRITE (Dip) NEGATIVE (NEGATIVE); UR SPECIFIC GRAVITY (Dip) 1.013 (1.003-1.030); UR TOTAL PROTEIN (Dip) NEGATIVE (NEGATIVE); UR UROBILINOGEN (Dip) NEGATIVE (NEGATIVE)
[2017-09-03] MEDS ORDERED: HYDROmorphONE 0.5 MG/0.5 ML SYG IV STA (22:58)
[2017-09-03 23:03] LABS: ALBUMIN 4.4 g/dl (3.3-4.9); ALBUMIN/GLOBULIN RATIO 1.25; BILIRUBIN,INDIRECT 0.2 mg/dl (0-1.1); BILIRUBIN,TOTAL 0.2 mg/dl (0.2-1.3); CALCIUM 10.1 mg/dl (8.4-10.2); CREATININE 0.62 mg/dl (0.44-1.00); POTASSIUM 3.9 mmol/L (3.5-5.1); TOTAL PROTEIN 7.9 g/dl (6.1-8.1)
--- NOTE | 2017-09-03 23:13 | RADRPT ---
PROCEDURE: US Pelvis. CLINICAL INDICATION: Abdominal and pelvic pain. Last menstrual 08/23/2017 TECHNIQUE: Multiple sonographic images of the pelvis were obtained utilizing a transabdominal and endovaginal technique. The images were reviewed on a PACS workstation. COMPARISON: CT abdomen and pelvis without contrast of 08/21/2017 FINDINGS: The uterus measures 8.4 x 4.3 x 5.7 cm. Nabothian cysts in the cervix. There is a 1.1 cm rounded are a of heterogeneous echotexture consistent with a subserosal exophytic fibroid arising from the anter ior fundus. The thickness of the endometrium equals 8.9 mm. The right ovary measures 2.8 x 1.9 x 1. 7 cm and is unremarkable and contains a 1.4 cm follicle. The left ovary measures 4.1 x 2.2 x 2.1 cm and is unremarkable and contains a 1.7 cm follicle containing internal echoes and a 1.7 cm exophytic follicle. Color flow and spectral analysis demonstrates normal arterial and venous flow in both ov lauro. No adnexal mass is seen. Very small amount of free fluid in cul-de-sac. IMPRESSION: Consistent with small uterine fibroid noted above. Very small amount of free fluid in cul-de-sac whi ch may be physiologic. Please see above. RPTAT: HJES .Chip Cruz MD, Date Time Electronically viewed and signed by .Chip Cruz MD, on 09/03/2017 23:13 .S/
--- NOTE | 2017-09-03 23:55 | RADRPT ---
PROCEDURE: CT abdomen and pelvis without contrast. CLINICAL INDICATION: Abdominal pain TECHNIQUE: CT scan of the abdomen and pelvis without contrast was performed. Sagittal and coronal reformatted images were obtained from the axial source images. One or more of the following dose re duction techniques were used: Automated exposure control, adjustment of the mA and/or kV according t o patient size, use of iterative reconstruction technique. CTDI = 21.17 mGy; DLP = 1230.49 mGy-cm COMPARISON: CT 08/21/2017 FINDINGS: Visualized lower thorax: The lung bases are clear. There is no evidence for pleural effusion. Liver, gallbladder, pancreas and spleen: The liver is normal and size, contour and attenuation. Th ere is no evidence for a liver mass or ductal dilatation. Cholecystectomy clips are again visualize d. No common bile duct abnormality is demonstrated. The pancreas is unremarkable. The spleen is n ormal in size. Adrenal glands and genitourinary system: The adrenal glands are normal bilaterally. Right interpola r to lower pole renal calculus of 4 x 3 mm is again noted. There is no right-sided hydronephrosis. T he left kidney remains unremarkable. The ureters are unremarkable. No urinary bladder abnormality is demonstrated. Slightly lobulated contour to the uterus unable to exclude small leiomyomata. The ovaries and adnexa are unremarkable. There is no evidence of free fluid in the cul-de-sac. Gastrointestinal system: The stomach is normal in caliber with no abnormality of significance. The small bowel is normal in caliber with no ileus, obstruction or wall thickening. The appendix and s urrounding fat are within the limits of normal. Diverticular disease of the left hemicolon is again noted. There is no evidence for colitis or diverticulitis. Peritoneum, retroperitoneum, lymph nodes and vessels: The abdominal aorta is normal in caliber. The re is no evidence for atherosclerotic calcification. The inferior vena cava is unremarkable. There is no evidence for adenopathy or mass. There is no ascites. No pneumoperitoneum is present Osseous structures and musculoskeletal findings: There is no fracture, lytic or blastic lesion. Ag ain demonstrated is a fat-containing ventral hernia below the umbilicus at the midline and slightly left of midline, the size estimated at 7.4 cm in greatest transverse dimension. RPTAT:HJJR IMPRESSION: 1. No evidence of acute intra-abdominal or intrapelvic pathology. 2. Stable fat-containing infraumbilical ventral hernia. 3. Nonobstructing right interpolar to lower pole renal calculus again identified. 4. Diverticular disease of the colon without diverticulitis. 5. Slightly lobulated uterine contour unable to exclude leiomyomata. 6. Changes of prior cholecystectomy. Physician Tj Date Time Electronically viewed and signed by Vinny Goss Physician on 09/03/2017 23:54 /
[2017-09-04] MEDS ORDERED: HYDROmorphONE 0.5 MG/0.5 ML SYG IV STA (00:22)
[2017-09-04] MEDS ORDERED: HYDR-906 PO (01:58)
[2017-09-04 02:01] VITALS: BP 119/69; PULSE 63; RESP 20; TEMP 98.3
--- NOTE | 2017-09-04 03:42 | ERD ---
ER Documentation Chief Complaint Chief Complaint RLQ abd pain radaiting to back x 2 days HPI This is a 37-year-old female presenting to emerge department with right lower quadrant abdominal pain radiating to right lower back 2 days. Patient states she has had 4 episodes of nonbloody nonbilious emesis in the last 2 days. No diarrhea or constipation. Patient admits to dysuria. No hematuria, urinary frequency or urgency. Denies fevers or chills. Patient has been seen 4 times in the last 2 months and has been previously diagnosed with nephrolithiasis and biliary colic. ROS All systems reviewed and are negative except as per history of present illness. Medications Home Meds Active Scripts Hydrocodone/Acetaminophen (Elwood 5-325 Tablet) 1 Each Tablet, 1 TAB PO Q6H Y for PAIN, #7 TAB Prov:JOSS KU NP 09/04/17 Tamsulosin Hcl* (Flomax*) 0.4 Mg Cap.er.24h, 0.4 MG PO QPM, #30 CAP Prov:DAMASO GUAN NP 08/21/17 Phenazopyridine Hcl* (Pyridium*) 200 Mg Tab, 200 MG PO TID Y for URINARY PAIN, # 6 TAB Prov:DAMASO GUAN NP 08/21/17 Dicyclomine Hcl* (Bentyl*) 10 Mg Capsule, 10 MG PO QID, #20 CAP Prov:DAMASO GUAN NP 08/21/17 Ondansetron (Ondansetron Odt) 4 Mg Tab.rapdis, 4 MG PO Q6H Y for NAUSEA AND/OR VOMITING, #20 TAB Prov:DAMASO GUAN NP 08/21/17 Hydrocodone/Acetaminophen (Elwood 5-325 Tablet) 1 Each Tablet, 1 TAB PO Q6H Y for PAIN, #20 TAB Prov:DAMASO GUAN NP 08/21/17 Ibuprofen* (Ibuprofen*) 800 Mg Tablet, 800 MG PO Q8, #20 TAB Prov:LISS GUSTAFSON 08/07/17 Hydrocodone/Acetaminophen (Elwood 5-325 Tablet) 1 Each Tablet, 1 EACH PO Q6, #20 TAB Prov:LISS GUSTAFSON 08/07/17 Ciprofloxacin Hcl* (Ciprofloxacin Hcl*) 500 Mg Tablet, 500 MG PO BID for 7 Days , TAB Prov:VILMA GUSTAFSONTHIA 08/07/17 Metronidazole* (Flagyl*) 500 Mg Tablet, 500 MG PO BID for 7 Days, TAB Prov:RIGO LEONARDO MD 07/21/17 Hydrocodone/Acetaminophen (Elwood 5-325 Tablet) 1 Each Tablet, 1 TAB PO Q6H Y for PAIN, #7 TAB Prov:MAYRACHILO PA-C 07/17/17 Ciprofloxacin Hcl* (Ciprofloxacin Hcl*) 500 Mg Tablet, 500 MG PO BID for 7 Days , TAB Prov:MAYRACHILO PA-C 07/17/17 Tamsulosin Hcl* (Flomax*) 0.4 Mg Cap.er.24h, 0.4 MG PO QPM, #7 CAP Prov:MAYRACHILO WISE 07/17/17 Hydrocodone/Acetaminophen (Elwood 10-325 Tablet) 1 Each Tablet, 1 TAB PO Q6H Y for PAIN, #20 TAB Prov:BELINDA TALLEY DO 07/14/17 Allergies Allergies: Coded Allergies: No Known Allergy (Unverified Allergy, Unknown, 05/11/08) PMhx/Soc History of Surgery: Yes (, CHOLECYSTECTOMY) Anesthesia Reaction: No Hx Neurological Disorder: No Hx Respiratory Disorders: No Hx Cardiac Disorders: No Hx Psychiatric Problems: No Hx Miscellaneous Medical Probl: Yes (KIDNEY STONES) Hx Alcohol Use: No Hx Substance Use: No (CRACK COCAINE QUIT 2005) Hx Tobacco Use: No Smoking Status: Never smoker Physical Exam Vitals Vital Signs Date Time Temp Pulse Resp B/P Pulse Ox O2 Delivery O2 Flow Rate FiO2 09/04/17 02:01 98.3 63 20 119/69 99 Room Air 09/03/17 20:32 98.6 90 20 139/88 99 Physical Exam Const: no acute distress, alert1 Head: Atraumatic Eyes: Normal Conjunctiva ENT: Normal External Ears, Nose and Mouth. Neck: Full range of motion..~ No meningismus. Resp: Clear to auscultation bilaterally Cardio: Regular rate and rhythm, no murmurs Abd: Soft, tenderness to right lower quadrant, non distended. Normal bowel sounds. Negative Dunn sign. No McBurney point tenderness. Skin: No petechiae or rashes Back: No midline or flank tenderness Ext: No cyanosis, or edema Neur: Awake and alert Psych: Normal Mood and Affect Result Diagram: 09/03/17222909/03/172229 Results 24 hrs Laboratory Tests Test 09/03/17 22:30 White Blood Count 5.510^3/ul Red Blood Count 4.2110^6/ul Hemoglobin 11.1g/dl Hematocrit 34.1% Mean Corpuscular Volume 81.0fl Mean Corpuscular Hemoglobin 26.4pg Mean Corpuscular Hemoglobin Concent 32.6g/dl Red Cell Distribution Width 13.4% Platelet Count 20370^3/UL Mean Platelet Volume 11.2fl Neutrophils % 68.7% Lymphocytes % 25.6% Monocytes % 5.1% Eosinophils % 0.2% Basophils % 0.2% Nucleated Red Blood Cells % 0.0/100WBC Neutrophils # 3.810^3/ul Lymphocytes # 1.410^3/ul Monocytes # 0.310^3/ul Eosinophils # 0.010^3/ul Basophils # 0.010^3/ul Nucleated Red Blood Cells # 0.010^3/ul Urine Color YELLOW Urine Clarity CLEAR Urine pH 8.0 Urine Specific [place] 1.013 Urine Ketones 1+mg/dL Urine Nitrite NEGATIVEmg/dL Urine Bilirubin NEGATIVEmg/dL Urine Urobilinogen NEGATIVEmg/dL Urine Leukocyte Esterase NEGATIVELeu/ul Urine Hemoglobin NEGATIVEmg/dL Urine Glucose NEGATIVEmg/dL Urine Total Protein NEGATIVEmg/dl Sodium Level 144mmol/L Potassium Level 3.9mmol/L Chloride Level 108mmol/L Carbon Dioxide Level 24mmol/L Anion Gap 16 Blood Urea Nitrogen 6mg/dl Creatinine 0.62mg/dl Glucose Level 105mg/dl Calcium Level 10.1mg/dl Total Bilirubin 0.2mg/dl Direct Bilirubin 0.00mg/dl Indirect Bilirubin 0.2mg/dl Aspartate Amino Transf (AST/SGOT) 29IU/L Alanine Aminotransferase (ALT/SGPT) 44IU/L Alkaline Phosphatase 60IU/L Total Protein 7.9g/dl Albumin 4.4g/dl Globulin 3.50g/dl Albumin/Globulin Ratio 1.25 Lipase 46U/L Serum HCG, Qualitative NEGATIVE Current Medications Medications (Trade) Dose Ordered Sig/Naomy Route PRN Reason Start Time Stop Time Status Last Admin Dose Admin Sodium Chloride (NS) 1,000 ml @ 1,000 mls/hr Q1H STAT IV 09/03/17 21:55 09/03/17 22:54 DC 09/03/17 22:29 Morphine Sulfate (morphine) 4 mg ONCE STAT IV 09/03/17 21:55 09/03/17 21:58 DC 09/03/17 22:28 Ondansetron HCl (Zofran Inj) 4 mg ONCE STAT IV 09/03/17 21:55 09/03/17 21:58 DC 09/03/17 22:29 Hydromorphone HCl (Dilaudid) 0.5 mg ONCE STAT IV 09/03/17 22:58 09/03/17 22:59 DC 09/03/17 23:03 Hydromorphone HCl (Dilaudid) 0.5 mg ONCE STAT IV 09/04/17 00:22 09/04/17 00:23 DC 09/04/17 00:35 Procedures/MDM Patient: NICOLA TURNER : 1980 Age: 37 Sex: F MR #: [id number] DOS: 09/03/17 2155 Ordering MD: JOSS CHAVEZ NP Location: [facility] Room/Bed: PROCEDURE: CT abdomen and pelvis without contrast. CLINICAL INDICATION: Abdominal pain TECHNIQUE: CT scan of the abdomen and pelvis without contrast was performed. Sagittal and coronal reformatted images were obtained from the axial source images. One or more of the following dose reduction techniques were used: Automated exposure control, adjustment of the mA and/or kV according to patient size, use of iterative reconstruction technique. CTDI = 21.17 mGy; DLP = 1230.49 mGy-cm COMPARISON: CT 08/21/2017 FINDINGS: Visualized lower thorax: The lung bases are clear. There is no evidence for pleural effusion. Liver, gallbladder, pancreas and spleen: The liver is normal and size, contour and attenuation. There is no evidence for a liver mass or ductal dilatation. Cholecystectomy clips are again visualized. No common bile duct abnormality is demonstrated. The pancreas is unremarkable. The spleen is normal in size. Adrenal glands and genitourinary system: The adrenal glands are normal bilaterally. Right interpolar to lower pole renal calculus of 4 x 3 mm is again noted. There is no right-sided hydronephrosis. The left kidney remains unremarkable. The ureters are unremarkable. No urinary bladder abnormality is demonstrated. Slightly lobulated contour to the uterus unable to exclude small leiomyomata. The ovaries and adnexa are unremarkable. There is no evidence of free fluid in the cul-de-sac. Gastrointestinal system: The stomach is normal in caliber with no abnormality of significance. The small bowel is normal in caliber with no ileus, obstruction or wall thickening. The appendix and surrounding fat are within the limits of normal. Diverticular disease of the left hemicolon is again noted. There is no evidence for colitis or diverticulitis. Peritoneum, retroperitoneum, lymph nodes and vessels: The abdominal aorta is normal in caliber. There is no evidence for atherosclerotic calcification. The inferior vena cava is unremarkable. There is no evidence for adenopathy or mass. There is no ascites. No pneumoperitoneum is present Osseous structures and musculoskeletal findings: There is no fracture, lytic or blastic lesion. Again demonstrated is a fat-containing ventral hernia below the umbilicus at the midline and slightly left of midline, the size estimated at 7.4 cm in greatest transverse dimension. RPTAT:HJJR IMPRESSION: 1. No evidence of acute intra-abdominal or intrapelvic pathology. 2. Stable fat-containing infraumbilical ventral hernia. 3. Nonobstructing right interpolar to lower pole renal calculus again identified. 4. Diverticular disease of the colon without diverticulitis. 5. Slightly lobulated uterine contour unable to exclude leiomyomata. 6. Changes of prior cholecystectomy. Patient: NICOLA TURNER : 1980 Age: 37 Sex: F [id number]: 09/03/17 2230 Ordering MD: JOSS CHAVEZ NP Location: [facility] Room/Bed: PROCEDURE: US Pelvis. CLINICAL INDICATION: Abdominal and pelvic pain. Last menstrual 08/23/2017 TECHNIQUE: Multiple sonographic images of the pelvis were obtained utilizing a transabdominal and endovaginal technique. The images were reviewed on a PACS workstation. COMPARISON: CT abdomen and pelvis without contrast of 08/21/2017 FINDINGS: The uterus measures 8.4 x 4.3 x 5.7 cm. Nabothian cysts in the cervix. There is a 1.1 cm rounded area of heterogeneous echotexture consistent with a subserosal exophytic fibroid arising from the anterior fundus. The thickness of the endometrium equals 8.9 mm. The right ovary measures 2.8 x 1.9 x 1.7 cm and is unremarkable and contains a 1.4 cm follicle. The left ovary measures 4.1 x 2.2 x 2.1 cm and is unremarkable and contains a 1.7 cm follicle containing internal echoes and a 1.7 cm exophytic follicle. Color flow and spectral analysis demonstrates normal arterial and venous flow in both ovaries. No adnexal mass is seen. Very small amount of free fluid in cul-de-sac. IMPRESSION: Consistent with small uterine fibroid noted above. Very small amount of free fluid in cul-de-sac which may be physiologic. Please see above. MDM: This is a 37-year-old female presenting to emergency department with right lower quadrant Abdominal pain and right-sided pelvic pain with vomiting 2 days. No active vomiting while in the ED. Patient is afebrile vital signs are stable. IV access obtained and labs drawn. Patient given 4 mg morphine and 4 mg Zofran IV and 1L IV fluid bolus. Upon reassessment, patient states pain has not improved. Patient given Dilaudid 0.5 mg IV. CBC shows no significant anemia or infection. CMP shows no significant electrolyte imbalance. Lipase is normal. Normal creatinine and BUN. Normal glucose. Normal liver enzymes. Normal bilirubin. Lipase is 46. UA shows 1+ ketones otherwise negative. CT abdomen and pelvis reviewed by radiologist as No evidence of acute intra- abdominal or intrapelvic pathology. Stable fat-containing infraumbilical ventral hernia. Nonobstructing right interpolar to lower pole renal calculus again identified. Diverticular disease of the colon without diverticulitis. Slightly lobulated uterine contour unable to exclude leiomyomata. Changes of prior cholecystectomy. Pelvic ultrasound reviewed by radiologist as consistent with small uterine fibroid noted above. Very small amount of free fluid in cul- de-sac which may be physiologic. Consulted Dr. Talley regarding this patient. We agree that patient is appropriate for outpatient management with follow up with GI. Vitals remained stable. Patient remains afebrile. Patient's pain is controlled. Differential diagnosis includes but not limited to acute appendicitis, diverticulitis, diverticulosis, bowel obstruction, constipation, infectious colitis, irritable bowel syndrome, inflammatory bowel disease, viral gastroenteritis, abdominal aortic aneurysm, food intolerance, celiac disease, UTI, pyelonephritis, nephrolithiasis, acute urinary retention or colorectal cancer. I doubt any emergent conditions such as appendicitis, diverticulitis, bowel obstruction, abdominal aortic aneurysm at this time due to normal vital signs and normal lab results. Patient is appropriate for outpatient management. Patient will be given prescription for Elwood 5/325mg #7. Instructed patient to follow-up with primary care provider in the next 2-3 days for reassessment and additional management. Return to ED for any high fever, chest pain, difficulty breathing, shortness breath, wheezing, vomiting, diarrhea, abdominal pain or any new or worsening symptoms. Patient verbalizes understanding. All questions answered at discharge. Kazakh translation used during this encounter. Disclaimer: Inadvertent spelling and grammatical errors are likely due to EHR/ dictation software use and do not reflect on the overall quality of patient care. Also, please note that the electronic time recorded on this note does not necessarily reflect the actual time of the patient encounter. Departure Diagnosis: Primary Impression: Abdominal pain Abdominal location: right lower quadrant Qualified Code: R10.31 - Right lower quadrant abdominal pain Additional Impression: Pelvic pain Condition: Stable Patient Instructions: Abdominal Pain Referrals: MARY WANG MD, MORDO MD [facility] () Usted se quan hecho un examen mdico de control que le indica que no est en diego condicin que requiera tratamiento urgente en el Departamento de Emergencia. Un estudio ms profundo y el tratamiento de whitley condicin pueden esperar sin ningn riesgo hasta que usted sea atendida/o en el consultorio de whitley mdico o diego cl yoel. Es responsabilidad suya arreglar diego cristóbal para el seguimiento del luciano. MANEJO DE CONDICIONES NO URGENTES EN EL FUTURO 1) Si usted tiene un mdico de atencin primaria: Usted debera llamar a whitley mdico de atencin primaria antes de venir al departamento de emergencia. Despus de las horas de consultorio, whitley doctor o whitley asociado/a est disponible por telfono. El mdico o enfermero de eliu en el servicio telefnico puede asesorarle por ping medio para atender el problema, o luciano contrario se puede programar diego cristóbal. 2) Si usted no tiene un mdico de atencin primaria: Llame al mdico o clnica de referencia que aparece abajo onelia las horas de consultorio para hacer diego cristóbal para que le vean. CLINICAS: [facility] [phone] [facility] [phone] [facility] [phone] [place] [id number] [phone] [place] [id number] [phone] [facility] [phone] [address] [facility] [facility] () Usted se quan hecho un examen mdico de control que le indica que no est en diego condicin que requiera tratamiento urgente en el Departamento de Emergencia. Un estudio ms profundo y el tratamiento de whitley condicin pueden esperar sin ningn riesgo hasta que usted sea atendida/o en el consultorio de whitley mdico o diego cl yoel. Es responsabilidad suya arreglar diego cristóbal para el seguimiento del luciano. MANEJO DE CONDICIONES NO URGENTES EN EL FUTURO 1) Si usted tiene un mdico de atencin primaria: Usted debera llamar a whitley mdico de atencin primaria antes de venir al departamento de emergencia. Despus de las horas de consultorio, whitley doctor o whitley asociado/a est disponible por telfono. El mdico o enfermero de eliu en el servicio telefnico puede asesorarle por ping medio para atender el problema, o luciano contrario se puede programar deigo cristóbal. 2) Si usted no tiene un mdico de atencin primaria: Llame al mdico o condado institucions de referencia que aparece abajo onelia las horas de consultorio para hacer diego cristóbal para que le vean. SI USTED NO PUEDE PAGAR PARA ALLIE UN MEDICO puede ir a: [facility] [address] [place] [address] [facility] [address] [place] [address] [facility] [address] [place] [address] [facility] [address] [place] [address] Additional Instructions: Llame al doctor MAANA y guy diego CRISTÓBAL PARA DENTRO DE 2-3 CRUZ.Dgale a la secretaria que nosotros le instruimos hacer esta cristóbal.Avise o llame si whitley condicin se empeora antes de la cristóbal. Regresa aqui si peor o no mejor. Vuelva a Ed para cualquier fiebre naveen, dolor en el pecho, dificultad para respirar, respiracin entrecortada, sibilancias, vmitos, diarrea, dolor abdominal o cualquier sntoma nuevo o empeoramiento. JOSS KU NP Sep 04, 2017 03:41
== END 2017-09-04 02:10 | disposition home or self-care (01) ==
LOC: FTE 20:30
DX: R10.31 Right lower quadrant pain (principal); R10.2 Pelvic and perineal pain
CPT/HCPCS: 36415; 74176; 76830; 76856; 80053; 81003; 83690; 84703; 85025; 87086; 96374; 96375; 96376; J1170; J2270; J2405; J7030; Z7502

== ENCOUNTER 2017-09-21 10:56 | Emergency (ER) | payer MEDICAID ==
[~2017-09-21] VITALS: Ht 152.4 cm; Wt 84.7 kg
[2017-09-21 11:01] VITALS: Ht 152.4 cm; Wt 84.7 kg
[2017-09-21] MEDS ORDERED: KETOROLAC 30 MG INJ IV STA (11:23)
[2017-09-21] MEDS ORDERED: ONDANSETRON 4 MG INJ IV STA (11:23)
[2017-09-21 12:17] LABS: BASOPHILS % 0.3 % (0.0-2.0); HEMATOCRIT 34.2 % (37.0-47.0); HEMOGLOBIN 10.8 g/dl (12.0-16.0); LYMPHOCYTES # 1.2 10^3/ul (0.8-2.9); LYMPHOCYTES % 19.6 % (15.0-51.0); MEAN CORPUSCULAR HEMOGLOBIN 25.9 pg (29.0-33.0); MEAN CORPUSCULAR HGB CONC 31.6 g/dl (32.0-37.0); MEAN PLATELET VOLUME 11.1 fl (7.4-10.4); MONOCYTE # 0.1 10^3/ul (0.3-0.9); MONOCYTES % 2.3 % (0.0-11.0); NEUTROPHIL # 4.8 10^3/ul (1.6-7.5); NEUTROPHILS % 77.6 % (39.0-77.0); PLATELET COUNT 385 10^3/UL (140-415); RED BLOOD COUNT 4.17 10^6/ul (4.20-5.40); RED CELL DISTRIBUTION WIDTH 13.7 % (11.5-14.5); WHITE BLOOD COUNT 6.1 10^3/ul (4.8-10.8)
[2017-09-21 12:19] LABS: ADD UMIC YES; UR ASCORBIC ACID NEGATIVE (NEGATIVE); UR BILIRUBIN (Dip) NEGATIVE (NEGATIVE); UR BLOOD (Dip) 2+ mg/dL (NEGATIVE); UR CLARITY SLIGHTLY CLOUDY (CLEAR); UR COLOR YELLOW (YELLOW); UR GLUCOSE (Dip) NEGATIVE (NEGATIVE); UR KETONES (Dip) TRACE mg/dL (NEGATIVE); UR LEUKOCYTE ESTERASE (Dip) NEGATIVE Leu/ul (NEGATIVE); UR NITRITE (Dip) NEGATIVE (NEGATIVE); UR RBC 1 /HPF (0-5); UR SQUAMOUS EPITHELIAL CELL FEW /HPF (FEW); UR TOTAL PROTEIN (Dip) NEGATIVE (NEGATIVE); UR UROBILINOGEN (Dip) NEGATIVE (NEGATIVE)
[2017-09-21 12:36] LABS: ALBUMIN 4.5 g/dl (3.3-4.9); ALBUMIN/GLOBULIN RATIO 1.25; BILIRUBIN,INDIRECT 0.3 mg/dl (0-1.1); BILIRUBIN,TOTAL 0.3 mg/dl (0.2-1.3); CALCIUM 9.9 mg/dl (8.4-10.2); CREATININE 0.63 mg/dl (0.44-1.00); POTASSIUM 3.7 mmol/L (3.5-5.1); TOTAL PROTEIN 8.1 g/dl (6.1-8.1)
[2017-09-21] MEDS ORDERED: ONDANSETRON (ODT) 4 MG TAB ODT ONE (13:15)
[2017-09-21] MEDS ORDERED: IBUP-1542 PO (13:25)
[2017-09-21] MEDS ORDERED: ACET500C5 PO (13:25)
[2017-09-21] MEDS ORDERED: ONDA4TAB8 PO (13:29)
--- NOTE | 2017-09-21 13:29 | ERD ---
ER Documentation Chief Complaint Chief Complaint FLANK PAIN WITH VOMITING SINCE 0600 HPI This is a 37-year-old female who presents the emergency department today planing of right-sided flank pain and abdominal pain. Patient states that started this morning. States that she has a history of kidney stones. States that she saw at all of you one time but was not seen again. States she has vomiting. Denies any fevers or chills, dysuria. ROS All systems reviewed and are negative except as per history of present illness. Medications Home Meds Active Scripts Ondansetron Hcl* (Zofran*) 4 Mg Tablet, 4 MG PO Q6H for NAUSEA AND/OR VOMITING, #30 TAB Prov:ILEANA MOYA PA-C 09/21/17 Acetaminophen* (Tylophen*) 500 Mg Capsule, 1 CAP PO Q6H Y for PAIN AND OR ELEVATED TEMP, #30 CAP Prov:ILEANA MOYA PA-C 09/21/17 Ibuprofen* (Motrin*) 600 Mg Tab, 600 MG PO Q6, #30 TAB Prov:ILEANA MOYA PA-C 09/21/17 Hydrocodone/Acetaminophen ([place] 5-325 Tablet) 1 Each Tablet, 1 TAB PO Q6H Y for PAIN, #7 TAB Prov:JOSS KU NP 09/04/17 Tamsulosin Hcl* (Flomax*) 0.4 Mg Cap.er.24h, 0.4 MG PO QPM, #30 CAP Prov:DAMASO GUAN NP 08/21/17 Phenazopyridine Hcl* (Pyridium*) 200 Mg Tab, 200 MG PO TID Y for URINARY PAIN, # 6 TAB Prov:DAMASO GUAN NP 08/21/17 Dicyclomine Hcl* (Bentyl*) 10 Mg Capsule, 10 MG PO QID, #20 CAP Prov:DAMASO GUAN NP 08/21/17 Ondansetron (Ondansetron Odt) 4 Mg Tab.rapdis, 4 MG PO Q6H Y for NAUSEA AND/OR VOMITING, #20 TAB Prov:DAMASO GUAN NP 08/21/17 Hydrocodone/Acetaminophen ([place] 5-325 Tablet) 1 Each Tablet, 1 TAB PO Q6H Y for PAIN, #20 TAB Prov:DAMASO GUAN NP 08/21/17 Ibuprofen* (Ibuprofen*) 800 Mg Tablet, 800 MG PO Q8, #20 TAB Prov:LISS GUSTAFSON 08/07/17 Hydrocodone/Acetaminophen ([place] 5-325 Tablet) 1 Each Tablet, 1 EACH PO Q6, #20 TAB Prov:LISS GUSTAFSON 08/07/17 Ciprofloxacin Hcl* (Ciprofloxacin Hcl*) 500 Mg Tablet, 500 MG PO BID for 7 Days , TAB Prov:LISS GUSTAFSON 08/07/17 Metronidazole* (Flagyl*) 500 Mg Tablet, 500 MG PO BID for 7 Days, TAB Prov:RIGO LEONARDO MD 07/21/17 Hydrocodone/Acetaminophen ([place] 5-325 Tablet) 1 Each Tablet, 1 TAB PO Q6H Y for PAIN, #7 TAB Prov:CHILO NUNEZ PA-C 07/17/17 Ciprofloxacin Hcl* (Ciprofloxacin Hcl*) 500 Mg Tablet, 500 MG PO BID for 7 Days , TAB Prov:CHILO NUNEZ PA-C 07/17/17 Tamsulosin Hcl* (Flomax*) 0.4 Mg Cap.er.24h, 0.4 MG PO QPM, #7 CAP Prov:CHILO NUNEZ PA-C 07/17/17 Hydrocodone/Acetaminophen ([place] 10-325 Tablet) 1 Each Tablet, 1 TAB PO Q6H Y for PAIN, #20 TAB Prov:BELINDA TALLEY DO 07/14/17 Allergies Allergies: Coded Allergies: No Known Allergy (Unverified , 09/21/17) PMhx/Soc Medical and Surgical Hx: pt denies Medical Hx History of Surgery: Yes (cholecystectomy 2010) Anesthesia Reaction: No Hx Neurological Disorder: No Hx Respiratory Disorders: No Hx Cardiac Disorders: No Hx Psychiatric Problems: No Hx Miscellaneous Medical Probl: Yes (KIDNEY STONES) Hx Alcohol Use: No Hx Substance Use: Yes (14 yrs ago) Hx Tobacco Use: Yes (14 yrs ago) Smoking Status: Former smoker Physical Exam Vitals Vital Signs Date Time Temp Pulse Resp B/P Pulse Ox O2 Delivery O2 Flow Rate FiO2 09/21/17 11:01 98.7 95 18 140/80 99 Physical Exam Const: NAD Head: Atraumatic Eyes: Normal Conjunctiva ENT: Normal External Ears, Nose and Mouth. Neck: Full range of motion..~ No meningismus. Resp: Clear to auscultation bilaterally Cardio: Regular rate and rhythm, no murmurs Abd: Soft, diffuse right-sided abdominal and pelvic tenderness, non distended. Normal bowel sounds no specific tenderness at McBurney's Skin: No petechiae or rashes Back: No midline tenderness. Right-sided flank tenderness. No CVA tenderness. Ext: No cyanosis, or edema Neur: Awake and alert Psych: Normal Mood and Affect Result Diagram: 09/21/17 1150 09/21/17 1150 Results 24 hrs Laboratory Tests Test 09/21/17 11:50 White Blood Count 6.110^3/ul Red Blood Count 4.1710^6/ul Hemoglobin 10.8g/dl Hematocrit 34.2% Mean Corpuscular Volume 82.0fl Mean Corpuscular Hemoglobin 25.9pg Mean Corpuscular Hemoglobin Concent 31.6g/dl Red Cell Distribution Width 13.7% Platelet Count 65648^3/UL Mean Platelet Volume 11.1fl Neutrophils % 77.6% Lymphocytes % 19.6% Monocytes % 2.3% Eosinophils % 0.0% Basophils % 0.3% Nucleated Red Blood Cells % 0.0/100WBC Neutrophils # 4.810^3/ul Lymphocytes # 1.210^3/ul Monocytes # 0.110^3/ul Eosinophils # 0.010^3/ul Basophils # 0.010^3/ul Nucleated Red Blood Cells # 0.010^3/ul Urine Color YELLOW Urine Clarity SLIGHTLY CLOUDY Urine pH 5.0 Urine Specific Natalia 1.020 Urine Ketones TRACEmg/dL Urine Nitrite NEGATIVEmg/dL Urine Bilirubin NEGATIVEmg/dL Urine Urobilinogen NEGATIVEmg/dL Urine Leukocyte Esterase NEGATIVELeu/ul Urine Microscopic RBC 1/HPF Urine Microscopic WBC 7/HPF Urine Squamous Epithelial Cells FEW/HPF Urine Hemoglobin 2+mg/dL Urine Glucose NEGATIVEmg/dL Urine Total Protein NEGATIVEmg/dl Sodium Level 145mmol/L Potassium Level 3.7mmol/L Chloride Level 110mmol/L Carbon Dioxide Level 22mmol/L Anion Gap 17 Blood Urea Nitrogen 9mg/dl Creatinine 0.63mg/dl Glucose Level 110mg/dl Calcium Level 9.9mg/dl Total Bilirubin 0.3mg/dl Direct Bilirubin 0.00mg/dl Indirect Bilirubin 0.3mg/dl Aspartate Amino Transf (AST/SGOT) 23IU/L Alanine Aminotransferase (ALT/SGPT) 29IU/L Alkaline Phosphatase 54IU/L Total Protein 8.1g/dl Albumin 4.5g/dl Globulin 3.60g/dl Albumin/Globulin Ratio 1.25 Current Medications Medications (Trade) Dose Ordered Sig/Naomy Route PRN Reason Start Time Stop Time Status Last Admin Dose Admin Ketorolac Tromethamine (Toradol) 30 mg ONCE STAT IV 09/21/17 11:23 09/21/17 11:24 DC 09/21/17 11:37 Ondansetron HCl (Zofran Inj) 4 mg ONCE STAT IV 09/21/17 11:23 09/21/17 11:24 DC 09/21/17 11:37 Acetaminophen/ Hydrocodone Bitart ([place] (5/325)) 1 tab ONCE ONCE PO 09/21/17 13:30 09/21/17 13:31 DC 09/21/17 13:13 Ondansetron HCl (Zofran Odt) 4 mg STK-MED ONCE ODT 09/21/17 13:15 09/21/17 13:16 DC Procedures/MDM This is a 37-year-old female who presents the emergency department today complaining of right-sided flank and pelvic and abdominal pain that started at 6 this morning. Patient states she has a known history of kidney stones. She states that this is the same pain that she always has but "worse". On physical exam patient had generalized right-sided abdominal and pelvic tenderness that is nonspecific tenderness to McBurney's. She is afebrile and otherwise well- appearing. She also had flank pain on physical exam. Upon review of patient's medical records this is the patient's sixth visit to the emergency department for the same complaints since June of this year. Patient has had [address] scans that show no acute abdomen and a nonobstructing kidney stone on the right side. Her CT scans of also showed diverticulosis without diverticulitis in a stable hernia as well. Given that patient presents with the same complaints I do not feel that a repeat CT scan is necessary at this time. I did obtain laboratory workup Laboratory workup shows no elevated white blood cell count. Her hemoglobin is mildly decreased at 10.8. Patient's last visit was 11.1. Platelets are within normal limits. Electrolytes are within normal limits. Glucose is within normal limits. Liver enzymes are within normal limits. UA is negative for infection. There are 7 microscopic white blood cells. There is one microscopic red blood cell. test is negative. Low suspicion for ectopic , tubo-ovarian abscess or ovarian torsion. Laboratory workup is negative. I have explained this to the patient. I explained to her that I will not give her a prescription for narcotic medications for home that she will need to follow back up at [facility]. Patient was given Toradol and one [place] here in the emergency department in addition to Zofran. She is afebrile and otherwise well-appearing and I have low suspicion for acute surgical abdomen especially given her negative lab workup. I discussed the patient with Dr. Escamilla and he is in agreement with the plan. Departure Diagnosis: Primary Impression: Flank pain Additional Impression: Abdominal pain Abdominal location: unspecified location Qualified Code: R10.9 - Abdominal pain, unspecified abdominal location Condition: Fair Patient Instructions: Abdominal Pain, Flank Pain, Uncertain Cause Referrals: your PCP [facility] Additional Instructions: Llame al doctor JUAN CARLOS y guy diego CRISTÓBAL PARA DENTRO DE 1-2 CRUZ.Dgale a la secretaria que nosotros le instruimos hacer esta cristóbal.Avise o llame si whitley condicin se empeora antes de la cristóbal. Regresa aqui si peor o no mejor. Take tylenol or Motrin for pain. Follow-up with your primary care doctor and over at [facility] ILEANA MOYA PA-C Sep 21, 2017 13:28
[2017-09-21] MEDS ORDERED: HYDROCODONE/APAP (5/325) TAB PO ONE (13:30)
== END 2017-09-21 13:37 | disposition home or self-care (01) ==
LOC: FTE 10:56
DX: R10.84 Generalized abdominal pain (principal); R10.2 Pelvic and perineal pain; Z87.891 Personal history of nicotine dependence
CPT/HCPCS: 80053; 81001; 85025; 96374; 96375; J1885; J2405; Z7502; Z7610

== ENCOUNTER 2017-11-24 23:00 | Emergency (ER) | END 2017-11-24 23:30 | disposition left against medical advice (07) ==

== ENCOUNTER 2017-12-01 06:48 | Emergency (ER) | END 2017-12-01 09:38 | disposition home or self-care (01) ==

== ENCOUNTER 2017-12-19 16:22 | Emergency (ER) | END 2017-12-19 21:00 | disposition home or self-care (01) ==

== ENCOUNTER 2018-01-12 21:59 | Emergency (ER) | END 2018-01-13 05:04 | disposition home or self-care (01) ==

== ENCOUNTER 2018-02-19 21:10 | Emergency (ER) | END 2018-02-20 02:07 | disposition home or self-care (01) ==

== ENCOUNTER 2018-03-22 16:32 | Emergency (ER) | END 2018-03-22 20:38 | disposition home or self-care (01) ==

== ENCOUNTER 2018-04-08 18:29 | Emergency (ER) | END 2018-04-08 22:50 | disposition home or self-care (01) ==

== ENCOUNTER 2018-05-07 11:54 | Emergency (ER) | END 2018-05-07 14:05 | disposition home or self-care (01) ==

== ENCOUNTER 2018-06-26 10:06 | Emergency (ER) | END 2018-06-26 12:31 | disposition home or self-care (01) ==

== ENCOUNTER 2018-11-20 12:25 | Emergency (ER) | payer MEDICAID ==
[~2018-11-20] VITALS: Wt 77.3 kg
[~2018-11-20 12:25] MED LIST changes: +ACET500C5 PO; +AZIT250T PO; +CYCL10TA7 PO; +DICY10CA40 PO; -DICY10CA60 PO; +DOCU-144 PO; +FER325 PO; +HYDR-3980 PO; +HYDR-4011 PO; -HYDR-902 PO; -HYDR-906 PO; +IBUP-1542 PO; +IBUP-1544 PO; -IBUP800T25 PO; +NAPR-688 PO; +NAPR-985 PO; +ONDA4TAB8 PO; +ONDA8TAB14 PO; +SULF1TAB31 PO
--- NOTE | 2018-11-20 13:22 | ERD ---
ER Documentation Chief Complaint Chief Complaint BILATERAL FLANK PAIN; PAIN WITH URINATION HPI The patient is a 28-year-old female, presenting to the ER because of bilateral flank pain, more on the right than the left, with dysuria for 1 week, worse today, constipation. She has similar symptoms previously from kidney stones, denies fever, chills, neck pain, chest pain, dyspnea. She is smokes, denies drinking Past medical history: History of kidney stones Past surgical history: Cholecystectomy, 4 ROS All systems reviewed and are negative except as per history of present illness. Medications Home Meds Active Scripts Polyethylene Glycol* (Miralax*) 17 Gm Powd.pack, 17 GM PO DAILY, #7 Prov:SOULEYMANE NICHOLAS MD 11/20/18 Hydrocodone/Acetaminophen ([place] 5-325 Tablet) 1 Each Tablet, 1 TAB PO Q6H PRN for PAIN, #7 TAB Prov:SOULEYMANE NICHOLAS MD 11/20/18 Discontinued Scripts Docusate Sodium* (Colace*) 100 Mg Capsule, 100 MG PO BID, #30 CAP Prov:TRISTON DUKES PA-C 06/26/18 Ferrous Sulfate* (Ferrous Sulfate*) 325 Mg Tabec, 325 MG PO DAILY, #30 TAB Prov:TRISTON DUKESC 06/26/18 Naproxen* (Naprosyn*) 500 Mg Tablet, 500 MG PO BID PRN for PAIN AND/OR INFLAMMATION, #30 TAB Prov:TRISTON DUKESC 06/26/18 Ondansetron (Ondansetron Odt) 8 Mg Tab.rapdis, 8 MG PO Q6H PRN for NAUSEA AND/OR VOMITING, #30 TAB Prov:TRISTON DUKESC 06/26/18 Hydrocodone/Acetaminophen ([place] 5-325 Tablet) 1 Each Tablet, 1 TAB PO Q6H PRN for PAIN, #30 TAB Prov:TRISTON DUKESC 06/26/18 Naproxen* (Naprosyn*) 500 Mg Tablet, 500 MG PO BID PRN for PAIN AND/OR INFLAMMATION, #30 TAB Prov:ILEANA MOYA PA-C 05/07/18 Ondansetron Hcl* (Zofran*) 4 Mg Tablet, 4 MG PO Q6H for NAUSEA AND/OR VOMITING, #30 TAB Prov:ILEANA MOYA PA-C 05/07/18 Hydrocodone/Acetaminophen ([place] 5-325 Tablet) 1 Each Tablet, 1 TAB PO Q6H PRN for PAIN, #12 TAB Prov:NITAILEANA VILLATOROC 05/07/18 Ondansetron (Ondansetron Odt) 4 Mg Tab.rapdis, 4 MG PO Q6H PRN for NAUSEA AND/OR VOMITING, #10 TAB Prov:ANGELITA OCONNOR DO 04/08/18 Naproxen* (Naproxen*) 500 Mg Tablet, 500 MG PO BID PRN for PAIN, #20 TAB Prov:ANGELITA OCONNOR DO 04/08/18 Hydrocodone/Acetaminophen ([place] 5-325 Tablet) 1 Each Tablet, 1 EACH PO Q6 for pain, #14 TAB Prov:ANGELITA OCONNOR 04/08/18 Azithromycin* (Zithromax*) 250 Mg Tablet, 250 MG PO .SAM DIRECTED, #6 TAB TAKE 500 MG (2 TABS) THE FIRST DAY THEN 250 MG (1 TAB) DAYS 2-5 Prov:ANGELITA OCONNOR DO 04/08/18 Ondansetron (Ondansetron Odt) 4 Mg Tab.rapdis, 4 MG PO Q6H PRN for NAUSEA AND/OR VOMITING, #10 TAB Prov:CHILO NUNEZ PA-C 03/22/18 Tamsulosin Hcl* (Flomax*) 0.4 Mg Cap.er.24h, 0.4 MG PO BID, #15 CAP Prov:CHILO NUNEZC 03/22/18 Ibuprofen* (Motrin*) 600 Mg Tab, 600 MG PO Q6, #30 TAB Prov:CHILO NUNEZ PA-C 03/22/18 Hydrocodone/Acetaminophen ([place] 5-325 Tablet) 1 Each Tablet, 1 TAB PO Q6H PRN for PAIN, #7 TAB Prov:CHILO NUNEZ PA-C 03/22/18 Hydrocodone/Acetaminophen ([place] 5-325 Tablet) 1 Each Tablet, 1 TAB PO Q6H PRN for PAIN, #12 TAB Prov:BRIENCHANEL 02/20/18 Ondansetron Hcl* (Zofran*) 4 Mg Tablet, 4 MG PO Q6H PRN for NAUSEA AND OR VOMITING, #10 TAB Prov:BRIEN,CHANEL 02/20/18 Naproxen* (Naprosyn*) 500 Mg Tablet, 500 MG PO BID PRN for PAIN AND/OR INFLAMMATION, #20 TAB Prov:BRIEN,CHANEL 02/20/18 Cyclobenzaprine Hcl* (Cyclobenzaprine Hcl*) 10 Mg Tablet, 10 MG PO TID, #15 TAB Prov:DAMASO GUAN NP 01/13/18 Ibuprofen* (Motrin*) 600 Mg Tab, 600 MG PO Q6H PRN for PAIN AND OR ELEVATED TEMP, #30 TAB Prov:DAMASO GUAN NP 01/13/18 Hydrocodone/Acetaminophen ([place] 5-325 Tablet) 1 Each Tablet, 1 TAB PO Q6H PRN for SEVERE PAIN LEVEL 7-10, #20 TAB Prov:DAMASO GUAN NP 01/13/18 Naproxen* (Naprosyn*) 500 Mg Tablet, 500 MG PO BID PRN for PAIN AND/OR INFLA MMATION, #10 TAB Prov:RIGO LEONARDO MD 12/19/17 Sulfamethoxazole/Trimethoprim* (Bactrim Ds* Tablet) 1 Each Tablet, 1 TAB PO BID, #14 TAB Prov:RIGO LEONARDO MD 12/19/17 Naproxen* (Naprosyn*) 500 Mg Tablet, 500 MG PO BID PRN for PAIN AND/OR INFLAMMATION, #30 TAB Prov:MEGHNA DE LEON PA-C 12/01/17 Hydrocodone/Acetaminophen ([place] 5-325 Tablet) 1 Each Tablet, 1 TAB PO Q6H PRN for PAIN, #7 TAB Prov:MEGHNA DE LEON PA-C 12/01/17 Ciprofloxacin Hcl* (Ciprofloxacin Hcl*) 500 Mg Tablet, 500 MG PO BID for 10 Days, TAB Prov:MEGHNA DE LEON PA-C 12/01/17 Ondansetron Hcl* (Zofran*) 4 Mg Tablet, 4 MG PO Q6H for NAUSEA AND/OR VOMITING, #30 TAB Prov:ILEANA MOYA PA-C 09/21/17 Acetaminophen* (Tylophen*) 500 Mg Capsule, 1 CAP PO Q6H PRN for PAIN AND OR ELEVATED TEMP, #30 CAP Prov:ILEANA MOYA PA-C 09/21/17 Ibuprofen* (Motrin*) 600 Mg Tab, 600 MG PO Q6, #30 TAB Prov:ILEANA MOYA PA-C 09/21/17 Hydrocodone/Acetaminophen ([place] 5-325 Tablet) 1 Each Tablet, 1 TAB PO Q6H PRN for PAIN, #7 TAB Prov:JOSS KU NP 09/04/17 Tamsulosin Hcl* (Flomax*) 0.4 Mg Cap.er.24h, 0.4 MG PO QPM, #30 CAP Prov:DAMASO GUAN NP 08/21/17 Phenazopyridine Hcl* (Pyridium*) 200 Mg Tab, 200 MG PO TID PRN for URINARY PAIN, #6 TAB Prov:DAMASO GUAN NP 08/21/17 Dicyclomine HCl (Dicyclomine HCl) 10 Mg Capsule, 10 MG PO QID, #20 CAP Prov:DAMASO GUAN NP 08/21/17 Ondansetron (Ondansetron Odt) 4 Mg Tab.rapdis, 4 MG PO Q6H PRN for NAUSEA AND/OR VOMITING, #20 TAB Prov:DAMASO GUAN NP 08/21/17 Hydrocodone/Acetaminophen ([place] 5-325 Tablet) 1 Each Tablet, 1 TAB PO Q6H PRN for PAIN, #20 TAB Prov:DAMASO GUAN NP 08/21/17 Ibuprofen* (Ibuprofen*) 800 Mg Tablet, 800 MG PO Q8, #20 TAB Prov:LISS GUSTAFSON MD 08/07/17 Hydrocodone/Acetaminophen ([place] 5-325 Tablet) 1 Each Tablet, 1 EACH PO Q6, #20 TAB Prov:LISS GUSTAFSON MD 08/07/17 Ciprofloxacin Hcl* (Ciprofloxacin Hcl*) 500 Mg Tablet, 500 MG PO BID for 7 Days, TAB Prov:LISS GUSTAFSON MD 08/07/17 Metronidazole* (Flagyl*) 500 Mg Tablet, 500 MG PO BID for 7 Days, TAB Prov:RIGO LEONARDO MD 07/21/17 Hydrocodone/Acetaminophen ([place] 5-325 Tablet) 1 Each Tablet, 1 TAB PO Q6H PRN for PAIN, #7 TAB Prov:CHILO NUNEZ PA-C 07/17/17 Ciprofloxacin Hcl* (Ciprofloxacin Hcl*) 500 Mg Tablet, 500 MG PO BID for 7 Days, TAB Prov:CHILO NUNEZ PA-C 07/17/17 Tamsulosin Hcl* (Flomax*) 0.4 Mg Cap.er.24h, 0.4 MG PO QPM, #7 CAP Prov:CHILO NUNEZ PA-C 07/17/17 Hydrocodone/Acetaminophen ([place] 10-325 Tablet) 1 Each Tablet, 1 TAB PO Q6H PRN for PAIN, #20 TAB Prov:BELINDA TALLEY DO 07/14/17 Allergies Allergies: Coded Allergies: No Known Allergy (Unverified , 11/20/18) PMhx/Soc History of Surgery: Yes (cholecystectomy 2010, C SEC X'S 4) Anesthesia Reaction: No Hx Neurological Disorder: No Hx Respiratory Disorders: No Hx Cardiac Disorders: No Hx Psychiatric Problems: No Hx Miscellaneous Medical Probl: Yes (KIDNEY STONES) Hx Alcohol Use: Yes Hx Substance Use: No Hx Tobacco Use: No Physical Exam Vitals Vital Signs Date Temp Pulse Resp B/P (MAP) Pulse Ox O2 O2 Flow FiO2 Time Delivery Rate 11/20/18 98.4 76 18 97/75 (82) 99 Room Air 16:10 11/20/18 98.7 83 18 125/66 100 13:03 (85) Physical Exam Const: No acute distress. Head: Atraumatic. Eyes: Normal Conjunctiva. ENT: Normal External Ears, Nose and Mouth. Neck: Full range of motion. No meningismus. Resp: Clear to auscultation bilaterally. Cardio: Regular rate and rhythm. Abd: Soft, non distended, normal bowel sounds, lateral flank tenderness, more on the right than the left, no right lower quadrant, right upper quadrant, epigastric, rigidity or rebound tenderness Skin: No petechiae or rashes. Back: No midline or flank tenderness. Ext: No cyanosis, or edema. Neur: Awake and alert. No focal deficit Psych: Normal Mood and Affect. Result Diagram: 11/20/18 1425 11/20/18 1425 Results 24 hrs Laboratory Tests Test 11/20/18 13:42 11/20/18 13:48 11/20/18 14:25 POC Beta HCG, Qualitative NEGATIVE Bedside Urine pH (LAB) 6.0 Bedside Urine Protein (LAB) Negative Bedside Urine Glucose (UA) Negative Bedside Urine Ketones (LAB) Negative Bedside Urine Blood Trace-intact Bedside Urine Nitrite (LAB) Negative Bedside Urine Leukocyte Esterase Negative (L White Blood Count 5.0 10^3/ul Red Blood Count 4.21 10^6/ul Hemoglobin 9.9 g/dl Hematocrit 32.7 % Mean Corpuscular Volume 77.7 fl Mean Corpuscular Hemoglobin 23.5 pg Mean Corpuscular 30.3 g/dl Hemoglobin Concent Red Cell Distribution Width 17.0 % Platelet Count 280 10^3/UL Mean Platelet Volume 11.3 fl Immature Granulocytes % 0.200 % Neutrophils % 55.0 % Lymphocytes % 36.6 % Monocytes % 6.4 % Eosinophils % 1.4 % Basophils % 0.4 % Nucleated Red Blood Cells % 0.0 /100WBC Immature Granulocytes # 0.010 10^3/ul Neutrophils # 2.8 10^3/ul Lymphocytes # 1.8 10^3/ul Monocytes # 0.3 10^3/ul Eosinophils # 0.1 10^3/ul Basophils # 0.0 10^3/ul Nucleated Red Blood Cells # 0.0 10^3/ul Sodium Level 142 mmol/L Potassium Level 3.9 mmol/L Chloride Level 110 mmol/L Carbon Dioxide Level 23 mmol/L Anion Gap 9 Blood Urea Nitrogen 10 mg/dl Creatinine 0.87 mg/dl Est Glomerular Filtrat Rate mL/min > 60 mL/min Glucose Level 81 mg/dl Calcium Level 9.5 mg/dl Total Bilirubin 0.1 mg/dl Direct Bilirubin 0.00 mg/dl Indirect Bilirubin 0.1 mg/dl Aspartate Amino Transf (AST/SGOT) 22 IU/L Alanine 20 IU/L Aminotransferase (ALT/SGPT) Alkaline Phosphatase 46 IU/L Total Protein 7.2 g/dl Albumin 4.0 g/dl Globulin 3.20 g/dl Albumin/Globulin Ratio 1.25 Lipase 84 U/L Current Medications Medications Dose Sig/Naomy Start Time Status Last (Trade) Ordered Route PRN Stop Time Admin Dose Reason Admin Morphine 2 mg ONCE STAT 11/20/18 DC 11/20/18 Sulfate IV 13:46 14:46 (morphine) 11/20/18 13:48 Ondansetron 4 mg ONCE STAT 11/20/18 DC 11/20/18 HCl (Zofran IV 13:46 14:44 Inj) 11/20/18 13:48 Sodium 1,000 ml @ Q1H ONCE 11/20/18 DC 11/20/18 Chloride 1,000 mls/hr IV 14:00 14:48 11/20/18 14:59 Procedures/[place] [id number] Radiology Main Line: [phone] DIAGNOSTIC IMAGING REPORT Patient: NICOLA MORALES : 1980 Age: 38 Sex: F MR #: [id number] DOS: 11/20/18 1346 Ordering MD: SOULEYMANE NICHOLAS MD Location: E/R Room/Bed: PROCEDURE: CT ABDOMEN AND PELVIS WITHOUT CONTRAST. CLINICAL INDICATION: Abdominal pain with nausea and vomiting TECHNIQUE: CT scan of the abdomen and pelvis without contrast was performed on a multidetector high-resolution CT scanner. The patient was scanned without intravenous contrast. Coronal and sagittal reformatted images were obtained from the axial source images. Images were reviewed on a high-resolution PACS workstation. The total exam CTDI equals 13.9 mGy and the total exam DLP equals 748.1 mGy-cm. One or more of the following dose reduction techniques were used: Automated exposure control. Adjustment of the mA and/or kV according to patient size. Use of iterative reconstruction technique. DICOM images are available COMPARISON: None FINDINGS: CT abdomen: The lung bases are clear. The heart size is within normal limits. There is no significant pericardial effusion. Hepatic morphology is within normal limits. No gross contour deforming masses. The gallbladder is not visualized. Status post cholecystectomy. No evidence of intrahepatic or extrahepatic biliary dilatation. The spleen and pancreas are within normal limits. Both adrenal glands are within normal limits. Both kidneys are in normal anatomic position. There is a nonobstructing 5 mm stone within the mid pole of the right kidney. No evidence of obstructive uropathy. The visualized GI tract demonstrates if normal caliber loops of small and large bowel. No evidence of bowel obstruction. Stool filled loops of large bowel suggestive of constipation. The appendix is within normal limits. The unenhanced aorta is unremarkable. No significant retroperitoneal lymphadenopathy. CT pelvis: The bladder is within normal limits. Uterus is unremarkable. Rectosigmoid colon demonstrates stool and diverticulosis. No significant free fluid. No pelvic lymphadenopathy. The visualized osseous structures, demonstrate mild degenerative changes of the spine. IMPRESSION: 1. No evidence of acute intra-abdominal/pelvic inflammatory process. No evidence of bowel obstruction. Stool filled loops of large bowel suggestive of constipation. The appendix is within normal limits. 2. Status post cholecystectomy. 3. 5 mm nonobstructing stone within the mid pole of the right kidney. No evidence of obstructive uropathy within both kidneys. RPTAT: AAPP Physician Hakan Date Time Electronically viewed and signed by Physician Hakan on 11/20/2018 14:25 JL/ CC: SOULEYMANE NICHOLAS MD [id number] MEDICAL MAKING DECISION: The patient is a 38-year-old female, presenting with acute right renal colic, constipation. She was treated with 1 L normal saline for clinical dehydration, morphine 2 mg IV for pain, Zofran 4 mg IV for nausea and a Fleet enema for constipation with good response, is stable for outpatient follow-up The differential diagnoses considered include but are not limited to cholelithiasis, cholecystitis, choledocholithiasis, cholangitis, pancreatitis, hepatitis, gastritis, peptic ulcer disease, gastric ulcer, appendicitis, cystitis, diverticulitis, partial small bowel obstruction. Departure Diagnosis: Primary Impression: Renal colic on right side Additional Impressions: Constipation Anemia Condition: Good Comments She was discharged with Dulcolax suppository, MiraLAX, Fleet enema and Ultram I discussed the findings with the patient. I advised the patient to follow-up with her surgeon in about 1-2 days, sooner if needed and return if any concern. Disclaimer: Inadvertent spelling and grammatical errors are likely due to EHR/dictation software use and do not reflect on the overall quality of patient care. Also, please note that the electronic time recorded on this note does not necessarily reflect the actual time of the patient encounter. SOULEYMANE NICHOLAS MD Nov 20, 2018 13:22
[2018-11-20] MEDS ORDERED: ONDANSETRON 4 MG INJ IV STA (13:46)
[2018-11-20] MEDS ORDERED: morphine 2 MG INJ IV STA (13:46)
[2018-11-20] MEDS ORDERED: SOD CHLORIDE 0.9% 1,000 ML IV ONE (14:00)
[2018-11-20] MEDS ORDERED: HYDR-4011 PO (15:52)
[2018-11-20] MEDS ORDERED: POLY17PO6 PO (15:53)
[2018-11-20 16:10] VITALS: BP 97/75; PULSE 76; RESP 18
== END 2018-11-20 16:11 | disposition home or self-care (01) ==
LOC: E/R 12:25
DX: N23 Unspecified renal colic (principal); K59.00 Constipation, unspecified; D64.9 Anemia, unspecified
CPT/HCPCS: 36415; 74176; 80053; 81003; 81025; 83690; 85025; 96361; 96374; 96375; J2270; J2405; J7030; Z7502

== ENCOUNTER 2018-12-30 18:25 | Emergency (ER) | payer MEDICAID ==
[~2018-12-30] VITALS: Ht 147.3 cm; Wt 72.7 kg
[~2018-12-30 18:25] MED LIST changes: -ACET500C5 PO; -AZIT250T PO; -CIPR500T4 PO; -CYCL10TA7 PO; -DICY10CA40 PO; -DOCU-144 PO; -FER325 PO; -HYDR-3980 PO; -IBUP-1542 PO; -IBUP-1544 PO; -METR500T PO; -NAPR-688 PO; -NAPR-985 PO; -ONDA4TAB14 PO; -ONDA4TAB8 PO; -ONDA8TAB14 PO; -PHEN-538 PO; +POLY17PO6 PO; -SULF1TAB31 PO; -TAMS-14 PO
[2018-12-30 18:28] VITALS: Ht 147.3 cm; Wt 72.7 kg
[2018-12-30] MEDS ORDERED: KETOROLAC 30 MG INJ IV STA (18:59)
[2018-12-30] MEDS ORDERED: SOD CHLORIDE 0.9% 1,000 ML IV STA (19:17)
[2018-12-30] MEDS ORDERED: morphine 4 MG/ML VIAL IV STA ×2 (19:17→21:14)
[2018-12-30] MEDS ORDERED: ONDANSETRON 4 MG INJ IV STA (19:17)
[2018-12-30] MEDS ORDERED: HYDR-4011 PO (23:08)
[2018-12-30] MEDS ORDERED: IBUP-1542 PO (23:08)
[2018-12-30] MEDS ORDERED: HYDROCODONE/APAP (10/325) TAB PO ONE (23:30)
[2018-12-30 23:33] VITALS: BP 104/82; PULSE 85; RESP 18
--- NOTE | 2018-12-31 00:37 | ERD ---
ER Documentation Chief Complaint Chief Complaint left flank pain x 4 days. hx of kidney stone HPI 38-year-old female with a history of kidney stones presenting with left flank pain for the past 4 days, worse today. Initially it was intermittent, now it is constant, 10 out of 10, stabbing in her left flank, radiating to her left groin. Not alleviated with Motrin at home. No associated vomiting but she does complain of nausea. No associated dysuria, hematuria, fever, or chills. She states this feels exactly like her kidney stones. ROS All systems reviewed and are negative except as per history of present illness. Medications Home Meds Active Scripts Hydrocodone/Acetaminophen ([place] 5-325 Tablet) 1 Each Tablet, 1 TAB PO Q6H PRN for PAIN, #7 TAB Prov:LAYLA JONES MD 12/30/18 Ibuprofen* (Motrin*) 600 Mg Tab, 600 MG PO Q6H PRN for PAIN AND OR ELEVATED TEMP, #30 TAB Prov:LAYLA JONES MD 12/30/18 Polyethylene Glycol* (Miralax*) 17 Gm Powd.pack, 17 GM PO DAILY, #7 Prov:SOULEYMANE NICHOLAS MD 11/20/18 Hydrocodone/Acetaminophen ([place] 5-325 Tablet) 1 Each Tablet, 1 TAB PO Q6H PRN for PAIN, #7 TAB Prov:SOULEYMANE NICHOLAS MD 11/20/18 Allergies Allergies: Coded Allergies: No Known Allergy (Unverified , 11/20/18) PMhx/Soc History of Surgery: Yes (cholecystectomy 2010, C SEC X'S 4) Anesthesia Reaction: No Hx Neurological Disorder: No Hx Respiratory Disorders: No Hx Cardiac Disorders: No Hx Psychiatric Problems: No Hx Miscellaneous Medical Probl: Yes (KIDNEY STONES) Hx Alcohol Use: Yes Hx Substance Use: No Hx Tobacco Use: No Smoking Status: Never smoker FmHx Family History: No diabetes Physical Exam Vitals Vital Signs Date Temp Pulse Resp B/P (MAP) Pulse Ox O2 O2 Flow FiO2 Time Delivery Rate 12/30/18 85 18 104/82 100 Room Air 23:33 (89) 12/30/18 85 18 129/113 100 Room Air 20:35 (118) 12/30/18 98.9 91 18 118/66 100 18:28 (83) Physical Exam Const: In mild distress secondary to pain, nontoxic Head: Atraumatic Eyes: Normal Conjunctiva ENT: Normal External Ears, Nose and Mouth. Neck: Full range of motion. No meningismus. Resp: Clear to auscultation bilaterally Cardio: Regular rate and rhythm, no murmurs Abd: Soft, non tender, non distended. Normal bowel sounds Skin: No petechiae or rashes Back: Left CVA mild tenderness Ext: No cyanosis, or edema Neur: Awake and alert Psych: Normal Mood and Affect Result Diagram: 12/30/18185312/30/181853 Results 24 hrs Laboratory Tests Test 12/30/18 18:54 12/30/18 18:55 White Blood Count 7.8 10^3/ul Red Blood Count 4.80 10^6/ul Hemoglobin 11.0 g/dl Hematocrit 36.8 % Mean Corpuscular Volume 76.7 fl Mean Corpuscular Hemoglobin 22.9 pg Mean Corpuscular Hemoglobin Concent 29.9 g/dl Red Cell Distribution Width 17.0 % Platelet Count 311 10^3/UL Mean Platelet Volume 11.7 fl Immature Granulocytes % 0.300 % Neutrophils % 60.4 % Lymphocytes % 32.6 % Monocytes % 5.4 % Eosinophils % 1.0 % Basophils % 0.3 % Nucleated Red Blood Cells % 0.0 /100WBC Immature Granulocytes # 0.020 10^3/ul Neutrophils # 4.7 10^3/ul Lymphocytes # 2.5 10^3/ul Monocytes # 0.4 10^3/ul Eosinophils # 0.1 10^3/ul Basophils # 0.0 10^3/ul Nucleated Red Blood Cells # 0.0 10^3/ul Sodium Level 141 mmol/L Potassium Level 3.7 mmol/L Chloride Level 109 mmol/L Carbon Dioxide Level 22 mmol/L Anion Gap 10 Blood Urea Nitrogen 10 mg/dl Creatinine 0.70 mg/dl Est Glomerular Filtrat Rate mL/min > 60 mL/min Glucose Level 126 mg/dl Calcium Level 9.8 mg/dl Urine Color YELLOW Urine Clarity SLIGHTLY CLOUDY Urine pH 5.0 Urine Specific [place] 1.023 Urine Ketones NEGATIVE mg/dL Urine Nitrite NEGATIVE mg/dL Urine Bilirubin NEGATIVE mg/dL Urine Urobilinogen 1+ mg/dL Urine Leukocyte Esterase NEGATIVE [place]/ul Urine Microscopic RBC 1 /HPF Urine Microscopic WBC 2 /HPF Urine Squamous Epithelial Cells FEW /HPF Urine Bacteria FEW /HPF Urine Mucus MODERATE /HPF Urine Hemoglobin NEGATIVE mg/dL Urine Glucose NEGATIVE mg/dL Urine Total Protein NEGATIVE mg/dl Current Medications Medications Dose Sig/Naomy Start Time Status Last (Trade) Ordered Route PRN Stop Time Admin Dose Reason Admin Ketorolac 30 mg ONCE STAT 12/30/18 DC 12/30/18 Tromethamine IV 18:59 12/30/18 19:04 (Toradol) 19:00 Sodium 1,000 ml @ Q1H STAT 12/30/18 DC 12/30/18 Chloride 1,000 mls/hr IV 19:17 12/30/18 19:24 20:16 Morphine 4 mg ONCE STAT 12/30/18 DC 12/30/18 Sulfate IV 19:17 12/30/18 19:24 (morphine) 19:18 Ondansetron 4 mg ONCE STAT 12/30/18 DC 12/30/18 HCl (Zofran IV 19:17 12/30/18 19:24 Inj) 19:18 Morphine 4 mg ONCE STAT 12/30/18 DC 12/30/18 Sulfate IV 21:14 12/30/18 21:26 (morphine) 21:15 1 tab ONCE ONCE 12/30/18 DC 12/30/18 Acetaminophen PO 23:30 12/30/18 23:30 / 23:31 Hydrocodone Bitart ([place] ()) Procedures/MDM EMERGENT LABS AND DIAGNOSTIC STUDIES: Lab Results above were reviewed and interpreted by me. CBC: Mild anemia. No evidence of infection BMP: No e/o clinically significant electrolyte abnormality severe acidosis, alkalosis, renal failure, diabetic ketoacidosis UA: Microscopic hematuria. No evidence of infection Radiology Results as interpreted by Radiology below were reviewed by Rita Jones MD: Ultrasound kidney shows left-sided mild hydronephrosis Initial Nursing notes reviewed. Previous Medical Records requested via the Electronic Health Record. EMERGENCY DEPARTMENT COURSE / MEDICAL DECISION MAKING: Patient is presenting with left flank pain, likely secondary to renal colic. Ultrasound does show mild hydronephrosis. She was given multiple doses of pain medications while here with her pain improved. She recently had a CT scan, I do not think repeat scanning is necessary. There is no evidence of associated pyelonephritis. I doubt other acute intra-abdominal or retroperitoneal pathology. Recommended follow-up with her primary care doctor and a urologist. Ibuprofen and [place] given for pain control at home. Return precautions discussed. Patient's blood pressure was elevated (>120/80) but appears stable without evidence of hypertensive emergency or urgency. The patient was counseled about the risks of hypertension and urged to pursue outpatient monitoring and therapy within a week with their primary care physician. Departure Diagnosis: Primary Impression: Renal colic on left side Condition: Stable Patient Instructions: Kidney Stone W/ Colic LAYLA JONES MD Dec 31, 2018 00:37
== END 2018-12-30 23:40 | disposition home or self-care (01) ==
LOC: E/R 18:25
DX: N23 Unspecified renal colic (principal)
CPT/HCPCS: 36415; 76775; 80048; 81001; 85025; 96374; 96375; 96376; J1885; J2270; J2405; J7030; Z7502; Z7610; 81003

== ENCOUNTER 2019-01-30 20:59 | Emergency (ER) | payer MEDICAID ==
[~2019-01-30] VITALS: Wt 71.9 kg
[~2019-01-30 20:59] MED LIST changes: +IBUP-1542 PO
[2019-01-30 21:04] VITALS: BP 142/72; PULSE 86; RESP 18
[2019-01-30] MEDS ORDERED: KETOROLAC 15 MG INJ IM STA (21:36)
--- NOTE | 2019-01-30 21:37 | ERD ---
ER Documentation Chief Complaint Chief Complaint DYSURIA, L LOWER BACK PAIN, FLANK PAIN X'S 2 DAYS HPI 38-year-old female, previously healthy, presents to the emergency department, complaining of dysuria, pelvic discomfort, increased urinary frequency and flank pain for 2 days. She denies fever, no chills, no nausea or vomiting. ROS All systems reviewed and are negative except as per history of present illness. Medications Home Meds Active Scripts Hydrocodone/Acetaminophen ([place] 5-325 Tablet) 1 Each Tablet, 1 TAB PO Q6H PRN for PAIN, #7 TAB Prov:LAYLA HAMILTON MD 12/30/18 Ibuprofen* (Motrin*) 600 Mg Tab, 600 MG PO Q6H PRN for PAIN AND OR ELEVATED TEMP, #30 TAB Prov:LAYLA HAMILTON MD 12/30/18 Polyethylene Glycol* (Miralax*) 17 Gm Powd.pack, 17 GM PO DAILY, #7 Prov:SOULEYMANE NICHOLAS MD 11/20/18 Hydrocodone/Acetaminophen ([place] 5-325 Tablet) 1 Each Tablet, 1 TAB PO Q6H PRN for PAIN, #7 TAB Prov:SOULEYMANE NICHOLAS MD 11/20/18 Allergies Allergies: Coded Allergies: No Known Allergy (Unverified , 11/20/18) PMhx/Soc History of Surgery: Yes (cholecystectomy 2011, C SECtion x2 ) Anesthesia Reaction: No Hx Neurological Disorder: No Hx Respiratory Disorders: No Hx Cardiac Disorders: No Hx Psychiatric Problems: No Hx Miscellaneous Medical Probl: Yes (KIDNEY STONES) Hx Alcohol Use: Yes Hx Substance Use: No Hx Tobacco Use: No FmHx Family History: No diabetes, No coronary disease Physical Exam Vitals Vital Signs Date Temp Pulse Resp B/P (MAP) Pulse Ox O2 O2 Flow FiO2 Time Delivery Rate 01/30/19 97.6 86 18 142/72 98 21:04 (95) Physical Exam Const: No acute distress Head: Atraumatic Eyes: Normal Conjunctiva ENT: Normal External Ears, Nose and Mouth. Neck: Full range of motion. No meningismus. Resp: Clear to auscultation bilaterally Cardio: Regular rate and rhythm, no murmurs Abd: Soft, non tender, non distended. Normal bowel sounds Skin: No petechiae or rashes Back: No midline or flank tenderness Ext: No cyanosis, or edema Neur: Awake and alert Psych: Normal Mood and Affect Results 24 hrs Laboratory Tests Test 01/30/19 21:30 Bedside Urine pH (LAB) 6.0 Bedside Urine Protein (LAB) 2+ Bedside Urine Glucose (UA) Negative Bedside Urine Ketones (LAB) Negative Bedside Urine Blood 3+ Bedside Urine Nitrite (LAB) Negative Bedside Urine Leukocyte Esterase (L Negative POC Beta HCG, Qualitative NEGATIVE Current Medications Medications Dose Sig/Naomy Start Time Status Last (Trade) Ordered Route PRN Stop Time Admin Dose Reason Admin Ketorolac 15 mg ONCE STAT 01/30/19 DC Tromethamine IM 21:36 01/30/19 (Toradol) 21:37 Patient on her menstrual period. Procedures/MDM Differential diagnosis include but not limited to: UTI, colitis, gastroenteritis, kidney stones, irritable bowel syndrome, inflammatory bowel syndrome, malabsorption syndrome, cholelithiasis, food intolerance, medication side effect, pancreatitis, diverticulitis, bowel obstruction. Low suspicion for acute abdomen Physical examination and clinical presentation consistent most likely with acute cystitis During the ED course I prescribed Toradol IM; but the patient became upset and requested something stronger, I informed to the patient, that before proceeding with stronger pain medication, further analysis needed to be done and she left the emergency department AGAINST MEDICAL ADVICE. Disclaimer: Inadvertent spelling and grammatical errors are likely due to EHR/dictation software use and do not reflect on the overall quality of patient care. Also, please note that the electronic time recorded on this note does not necessarily reflect the actual time of the patient encounter. Departure Diagnosis: Primary Impression: Dysuria Additional Impression: Acute cystitis Condition: Stable Patient Instructions: RIGO Damico MD January 30, 2019 21:37
== END 2019-01-30 21:40 | disposition left against medical advice (07) ==
LOC: FTE 20:59
DX: N30.00 Acute cystitis without hematuria (principal)
CPT/HCPCS: 81003; 81025; Z7502; 99282; J1885